=== PATIENT | female | born 1960 | race Two or more races ===

== ENCOUNTER 2016-04-24 19:06 | Inpatient (IN) | payer MEDICAID, OTHER ==
[~2016-04-24] VITALS: Ht 172.7 cm; Wt 164.2 kg
[2016-04-24 20:06] LABS: INR 2.38 (0.87-1.13)
[2016-04-24 20:07] LABS: ALANINE AMINOTRANSFERASE 77 U/L (12-78); ALBUMIN 1.8 g/dL (3.4-5.0); ASPARTATE AMINOTRANSFERASE 278 U/L (15-37); BILIRUBIN,DIRECT 6.4 mg/dL (0.0-0.2); BILIRUBIN,TOTAL 7.9 mg/dL (0.2-1.0); CARBON DIOXIDE 23 mmol/L (21-32); CHLORIDE 105 mmol/L (98-107); GFR 9 mL/min (>60); INDIRECT BILIRUBIN 1.5 mg/dL (0.0-1.1); POTASSIUM 4.9 mmol/L (3.5-5.1); SODIUM SERUM 139 mmol/L (136-145); TOTAL PROTEIN, SERUM 6.9 g/dL (6.4-8.2)
[2016-04-24 20:09] LABS: ANION GAP 16 (5-14); CALCIUM, SERUM 10.6 mg/dL (8.5-10.1); CREATININE 5.1 mg/dL (0.6-1.3); GLUCOSE 123 mg/dL (74-106); TROPONIN I 0.022 ng/mL (0.00-0.056); UREA NITROGEN, BLOOD 58 mg/dL (7-18)
[2016-04-24 20:13] LABS: DIFF TOTAL % 100 %; EOSINOPHILS # (AUTO) 0.7 /CMM (0.0-0.7); EOSINOPHILS % (AUTO) 7.1 % (0.0-6.0); HEMATOCRIT 35 % (33-45); LYMPHOCYTES # (AUTO) 1.3 /CMM (0.8-4.8); LYMPHOCYTES % (AUTO) 13.6 % (20.0-44.0); MEAN CORPUSCULAR HEMOGLOBIN 28 PG (26.0-33.0); MEAN CORPUSCULAR HGB CONC 31 g/dl (31.0-36.0); MEAN CORPUSCULAR VOLUME 89 fL (82-100); MONOCYTES # (AUTO) 0.6 /CMM (0.1-1.30); MONOCYTES % (AUTO) 6.3 % (2.0-12.0); NEUTROPHILS # (AUTO) 6.9 /CMM (1.8-8.9); PLATELET COUNT (AUTO) 111 /CMM (150-450); RED BLOOD CELL COUNT(AUTO) 3.94 MIL/uL (4.0-5.2); WHITE BLOOD COUNT (AUTO) 9.4 K/uL (4.3-11.0)
[2016-04-24 20:16] LABS: LACTIC ACID 3.2 mmol/L (0.4-2.0)
[2016-04-24] MEDS ORDERED: IV NS 0.9% 2,000 ML ONE (20:17)
[2016-04-24] MEDS ORDERED: IV SET PRIMARY 1 EA INFUS.SET MC ONE ×3 (20:17→21:00)
[2016-04-24 20:28] LABS: KETONES,URINE TRACE (NEGATIVE); LEUKOCYTE ESTERASE ,URINE 3+ (NEGATIVE)
[2016-04-24] MEDS ORDERED: IV NS 0.9% 1,000 ML BAG IV ONE (20:30)
[2016-04-24 20:32] LABS: ADD UA MICROSCOPIC YES
[2016-04-24 20:34] LABS: ADD URINE CULTURE YES; RBC,URINE TOO NUMEROUS TO COUN /HPF (0-2); WBC,URINE TOO NUMEROUS TO COUN /HPF (0-3)
[2016-04-24] MEDS ORDERED: CEFTRIAXONE 1GM BAG (ER ONLY) 50 ML IV ONE (20:44)
[2016-04-24 20:47] LABS: *LACTIC ACID REFLEX FLAG YES
[2016-04-24] MEDS ORDERED: CIPROFLOXACIN IV RTU 400 MG in PREMIX 1 EA IV SCH (21:00)
[2016-04-24] MEDS ORDERED: CEFEPIME 1 GM VIAL ONE (21:00)
[2016-04-24] MEDS ORDERED: CEFTRIAXONE 1 G in IV D5W 50 ML IV SCH (21:00)
[2016-04-24] MEDS ORDERED: CEFEPIME 1 GM in IV D5W 50 ML IV ONE (21:00)
[2016-04-24] MEDS ORDERED: CIPROFLOXACIN IV RTU 200 ML IV ONE (21:00)
[2016-04-24] MEDS ORDERED: IV SET PRIMARY PUMP SET 1 EA INFUS.SET MC ONE (21:01)
[2016-04-24] MEDS ORDERED: IV D5W 50 ML IV ONE (21:01)
[2016-04-24] MEDS ORDERED: ACETAMINOPHEN 325 MG TABLET PO PRN (22:00)
[2016-04-24] MEDS ORDERED: HYDROCODONE/APAP 5/325MG 1 EACH TABLET PO PRN (22:00)
[2016-04-24] MEDS ORDERED: MAGNESIUM HYDROXIDE 30 ML UDC PO PRN (22:00)
[2016-04-24] MEDS ORDERED: ONDANSETRON HCL/PF 4 MG/2 ML VIAL IVP PRN (22:00)
[2016-04-24] MEDS ORDERED: Z GUARD REMEDY 2 OZ OINT TP PRN (22:00)
[2016-04-24] MEDS ORDERED: MAG HYDROX/AL HYDROX/SIMETH 30 ML UDC PO PRN (22:00)
[2016-04-24] MEDS ORDERED: ZOLPIDEM TARTRATE 5 MG TABLET PO PRN (22:00)
[2016-04-25] VITALS (60 sets, daily range): BP systolic 75–121; BP diastolic 33–70
[2016-04-25] MEDS ORDERED: DEXTROSE 50%-WATER 50 ML DISP.SYRIN IV PRN (00:30)
[2016-04-25] MEDS ORDERED: MUPI1OIN BNOSTRILS (01:17)
[2016-04-25] MEDS ORDERED: FURO-145 PO (01:17)
[2016-04-25] MEDS ORDERED: ONDA4TAB5 PO (01:17)
[2016-04-25] MEDS ORDERED: DIPH50CA37 PO (01:17)
[2016-04-25] MEDS ORDERED: BENA10TA2 PO (01:17)
[2016-04-25] MEDS ORDERED: FAMO-131 PO (01:17)
[2016-04-25] MEDS ORDERED: OCULAR LUBRICANT (01:17)
[2016-04-25] MEDS ORDERED: APIX5TAB PO (01:17)
[2016-04-25] MEDS ORDERED: GABA100C PO (01:17)
[2016-04-25] MEDS ORDERED: OXYB5TAB29 PO (01:17)
[2016-04-25] MEDS ORDERED: NYST500P TOP (01:17)
[2016-04-25] MEDS ORDERED: ACID1CAP3 PO (01:18)
[2016-04-25] MEDS ORDERED: MELA1TAB10 PO (01:18)
[2016-04-25] MEDS ORDERED: POLY17PO4 PO (01:18)
[2016-04-25] MEDS ORDERED: HYDR2TAB35 PO (01:18)
[2016-04-25] MEDS ORDERED: TRAM50TA2 PO (01:18)
[2016-04-25] MEDS ORDERED: IBUP-1481 PO (01:18)
[2016-04-25] MEDS ORDERED: IBUP-1955 PO (01:18)
[2016-04-25] MEDS ORDERED: Medication Not On Formulary EA (Ondansetron Hcl (Zofran) 1 TAB) PO PRN (01:30)
[2016-04-25] MEDS ORDERED: POLYETHYLENE GLYCOL 3350 17 GM POWD.PACK PO PRN (01:30)
[2016-04-25] MEDS ORDERED: diphenhydrAMINE HCL 50 MG CAPSULE PO PRN (01:30)
[2016-04-25] MEDS ORDERED: HYDROMORPHONE HCL 2 MG TABLET PO PRN (01:30)
[2016-04-25] MEDS ORDERED: IV NS 0.9% 1,000 ML ONE (03:51)
[2016-04-25] MEDS ORDERED: IV SET PRIMARY PUMP SET 1 EA INFUS.SET MC ONE ×3 (03:51→09:08)
[2016-04-25] MEDS: IV NS 0.9% 1,000 ML IV PRN ×2 (04:14→15:03)
[2016-04-25] MEDS: BLOOD SUGAR DIAGNOSTIC 1 EACH STRIP IN SCH ×4 (05:50→21:26)
[2016-04-25] MEDS: INSULIN DETEMIR 100 UNIT/ML CARTRIDGE SQ SCH ×2 (05:58→07:30)
[2016-04-25] MEDS ORDERED: NOREPINEPHRINE 8 MG in IV D5W 500 ML IV PRN (06:00)
[2016-04-25] MEDS ORDERED: IV D5W 500 ML IV ONE (06:22)
[2016-04-25] MEDS ORDERED: NOREPINEPHRINE 4 MG/4 ML AMPUL IV ONE (06:22)
[2016-04-25] MEDS: NOREPINEPHRINE 8 MG in IV D5W 500 ML IV PRN ×2 (06:38→09:17)
[2016-04-25 07:59] LABS: CALCIUM, SERUM 10.1 mg/dL (8.5-10.1); CREATININE 5.1 mg/dL (0.6-1.3); PHOSPHORUS 4.6 mg/dL (2.5-4.9)
[2016-04-25 08:18] LABS: POTASSIUM 5.4 mmol/L (3.5-5.1)
[2016-04-25] MEDS ORDERED: OXYBUTYNIN CHLORIDE ER 5 MG TAB PO SCH (09:00)
[2016-04-25] MEDS: LANOLIN/MIN OIL/PETROLAT,WHT 3.5 GM TUBE EACHEYE SCH ×2 (09:00→17:43)
[2016-04-25] MEDS: FAMOTIDINE (20 MG) 20 MG TABLET PO SCH ×2 (09:00→17:44)
[2016-04-25] MEDS: ACIDOPHILUS/BULGARICUS 1 EACH TAB.CHEW PO SCH ×2 (09:00→17:44)
[2016-04-25] MEDS: GABAPENTIN 100 MG CAPSULE PO SCH (09:00)
[2016-04-25] MEDS: TRAMADOL HCL 50 MG TABLET PO SCH ×3 (09:00→17:44)
[2016-04-25 09:01] LABS: BASOPHILS % (AUTO) 0.1 % (0.0-2.0); DIFF TOTAL % 100 %; EOSINOPHILS # (AUTO) 0.8 /CMM (0.0-0.7); EOSINOPHILS % (AUTO) 8.6 % (0.0-6.0); HEMATOCRIT 34 % (33-45); HEMOGLOBIN 10.8 g/dL (11.5-14.8); LYMPHOCYTES # (AUTO) 0.6 /CMM (0.8-4.8); LYMPHOCYTES % (AUTO) 6.6 % (20.0-44.0); MEAN CORPUSCULAR HEMOGLOBIN 29 PG (26.0-33.0); MEAN CORPUSCULAR HGB CONC 32 g/dl (31.0-36.0); MEAN CORPUSCULAR VOLUME 90 fL (82-100); MONOCYTES # (AUTO) 0.9 /CMM (0.1-1.30); NEUTROPHILS % (AUTO) 74.7 % (43.0-81.0); PLATELET COUNT (AUTO) 87 /CMM (150-450); RED BLOOD CELL COUNT(AUTO) 3.77 MIL/uL (4.0-5.2)
[2016-04-25] MEDS ORDERED: SECONDARY IV SET 1 EA INFUS.SET MC ONE ×2 (09:08→13:52)
[2016-04-25] MEDS ORDERED: IV NS 0.9% 250 ML IV ONE (09:09)
[2016-04-25] MEDS: VANCOMYCIN 1.25 GM in IV D5W 500 ML IV SCH (09:17)
[2016-04-25] MEDS ORDERED: MUPIROCIN OINT 2% 22 GM TUBE TP SCH (09:30)
[2016-04-25] MEDS: APIXABAN 5 MG TABLET PO SCH ×2 (10:00→20:00)
[2016-04-25] MEDS ORDERED: MUPIROCIN OINT 2% 22 GM TUBE SCH (10:00)
[2016-04-25] MEDS ORDERED: FEE PK DOSING 1 MIN EA MC ONE (10:47)
[2016-04-25 11:25] LABS: LYMPHOCYTES % (MANUAL) 12 % (16-48); WHITE BLOOD COUNT (AUTO) 9.4 K/uL (4.3-11.0)
[2016-04-25 11:26] LABS: EOSINOPHILS % (MANUAL) 9 % (0-4)
[2016-04-25 11:27] LABS: ANISOCYTOSIS 2+; HYPOCHROMASIA 1+; PLATELET ESTIMATE DECREASED
[2016-04-25] MEDS ORDERED: SODIUM POLYSTYRENE SULFONATE 15 G/60 ML BOTTLE RC ONE (13:00)
[2016-04-25 13:38] LABS: CREATININE, URINE 67.5 MG/DL (30.0-125.0)
[2016-04-25] MEDS: ALBUMIN 25% 25 GM in PREMIX 1 EA IV SCH ×2 (13:55→18:00)
[2016-04-25] MEDS: NYSTATIN CREAM 15 GM TUBE TP SCH ×2 (14:00→17:44)
[2016-04-25] MEDS: INSULIN ASPART NOVOLOG 100 UNIT/ML CARTRIDGE SQ PRN (17:51)
[2016-04-25] MEDS: NOREPINEPHRINE 16 MG in IV D5W 500 ML IV PRN (18:01)
[2016-04-25 18:21] LABS: ABG HCO3 18.3 mmol/L; ABG PCO2 31.9 mmHg (35.0-45.0); ABG PH 7.376 (7.350-7.450); ABG PO2 93.1 mmHg (75.0-100.0); ABG TOTAL HEMOGLOBIN 11.1 G/dL (12.0-16.0); ALLEN TEST Pass; AaDO2 155.4 mmHg; O2Hb 94.5 % (94.0-97.0)
[2016-04-25] MEDS: CEFEPIME 1 GM in IV D5W 50 ML IV SCH (21:26)
[2016-04-25] MEDS ORDERED: Medication Not On Formulary EA (Melatonin/Pyridoxine (Melatonin 3 Mg Tablet) 1 EACH) PO SCH (22:00)
[2016-04-25] MEDS ORDERED: CEFTRIAXONE 1 G in IV D5W 50 ML IV SCH (22:00)
[2016-04-26] VITALS (76 sets, daily range): BP systolic 81–153; BP diastolic 32–76
[2016-04-26] MEDS: ALBUMIN 25% 25 GM in PREMIX 1 EA IV SCH ×2 (00:06→06:00)
[2016-04-26 04:44] LABS: BASOPHILS % (AUTO) 0.2 % (0.0-2.0); DIFF TOTAL % 100 %; EOSINOPHILS # (AUTO) 0.5 /CMM (0.0-0.7); EOSINOPHILS % (AUTO) 5.5 % (0.0-6.0); HEMATOCRIT 29 % (33-45); HEMOGLOBIN 9.5 g/dL (11.5-14.8); LYMPHOCYTES # (AUTO) 3.3 /CMM (0.8-4.8); LYMPHOCYTES % (AUTO) 34.6 % (20.0-44.0); MEAN CORPUSCULAR HEMOGLOBIN 29 PG (26.0-33.0); MEAN CORPUSCULAR HGB CONC 33 g/dl (31.0-36.0); MEAN CORPUSCULAR VOLUME 89 fL (82-100); MONOCYTES # (AUTO) 0.7 /CMM (0.1-1.30); MONOCYTES % (AUTO) 7.6 % (2.0-12.0); NEUTROPHILS # (AUTO) 4.9 /CMM (1.8-8.9); NEUTROPHILS % (AUTO) 52.1 % (43.0-81.0); PLATELET COUNT (AUTO) 79 /CMM (150-450); RED BLOOD CELL COUNT(AUTO) 3.27 MIL/uL (4.0-5.2); WHITE BLOOD COUNT (AUTO) 9.4 K/uL (4.3-11.0)
[2016-04-26 05:14] LABS: ALBUMIN 2.6 g/dL (3.4-5.0); BILIRUBIN,DIRECT 7.1 mg/dL (0.0-0.2); CALCIUM, SERUM 9.9 mg/dL (8.5-10.1); CREATININE 5.7 mg/dL (0.6-1.3); INDIRECT BILIRUBIN 1.9 mg/dL (0.0-1.1); PHOSPHORUS 4.2 mg/dL (2.5-4.9); POTASSIUM 4.6 mmol/L (3.5-5.1); TOTAL PROTEIN, SERUM 6.5 g/dL (6.4-8.2)
[2016-04-26 05:43] LABS: ANISOCYTOSIS 2+; BASOPHILS % (MANUAL) 0 % (0.0-2.0); EOSINOPHILS % (MANUAL) 13 % (0-4); LYMPHOCYTES % (MANUAL) 15 % (16-48); PLATELET ESTIMATE DECREASED
[2016-04-26 05:44] LABS: POLYCHROMASIA 1+
[2016-04-26] MEDS: INSULIN DETEMIR 100 UNIT/ML CARTRIDGE SQ SCH (07:30)
[2016-04-26] MEDS: BLOOD SUGAR DIAGNOSTIC 1 EACH STRIP IN SCH ×4 (07:43→21:55)
[2016-04-26] MEDS: APIXABAN 5 MG TABLET PO SCH ×2 (09:00→17:11)
[2016-04-26] MEDS: FAMOTIDINE (20 MG) 20 MG TABLET PO SCH ×2 (09:00→17:10)
[2016-04-26] MEDS: ACIDOPHILUS/BULGARICUS 1 EACH TAB.CHEW PO SCH ×2 (09:00→17:10)
[2016-04-26] MEDS: TRAMADOL HCL 50 MG TABLET PO SCH ×3 (09:00→17:10)
[2016-04-26] MEDS: GABAPENTIN 100 MG CAPSULE PO SCH (09:00)
[2016-04-26] MEDS: LANOLIN/MIN OIL/PETROLAT,WHT 3.5 GM TUBE EACHEYE SCH ×2 (09:01→17:12)
[2016-04-26] MEDS: NYSTATIN CREAM 15 GM TUBE TP SCH ×2 (09:01→17:12)
[2016-04-26] MEDS: IV NS 0.9% 1,000 ML IV PRN ×2 (09:02→21:57)
[2016-04-26 09:29] LABS: ABG BASE EXCESS -6.8 mmol/L; ABG HCO3 18.3 mmol/L; ABG PH 7.336 (7.350-7.450); ABG PO2 88.2 mmHg (75.0-100.0); ABG TOTAL HEMOGLOBIN 10.5 G/dL (12.0-16.0); ALLEN TEST Pass; AaDO2 156.8 mmHg; O2Hb 93.6 % (94.0-97.0)
[2016-04-26] MEDS ORDERED: GLYTROL 1,000 ML BAG GT PRN (09:30)
[2016-04-26] MEDS ORDERED: LACTULOSE 10 G/15 ML UDC (PYXIS) PO PRN (12:00)
[2016-04-26] MEDS: LACTULOSE 10 G/15 ML UDC (PYXIS) PO SCH ×2 (12:45→17:10)
[2016-04-26] MEDS: NOREPINEPHRINE 16 MG in IV D5W 500 ML IV PRN (15:30)
[2016-04-26] MEDS: PROSOURCE / PROSTAT (PYXIS) 30 ML UDC GT SCH (17:00)
[2016-04-26] MEDS: CEFEPIME 1 GM in IV D5W 50 ML IV SCH (20:00)
[2016-04-26] MEDS ORDERED: SECONDARY IV SET 1 EA INFUS.SET MC ONE (20:00)
[2016-04-27] VITALS (110 sets, daily range): BP systolic 70–133; BP diastolic 30–74
[2016-04-27] MEDS ORDERED: IV NS 0.9% 1,000 ML BAG IV ONE
[2016-04-27] MEDS: LACTULOSE 10 G/15 ML UDC (PYXIS) PO SCH ×4 (00:01→17:10)
[2016-04-27 08:06] LABS: CALCIUM, SERUM 9.6 mg/dL (8.5-10.1); CREATININE 6.5 mg/dL (0.6-1.3); POTASSIUM 4.2 mmol/L (3.5-5.1)
[2016-04-27] MEDS: FAMOTIDINE (20 MG) 20 MG TABLET PO SCH ×2 (08:20→17:11)
[2016-04-27] MEDS: TRAMADOL HCL 50 MG TABLET PO SCH ×3 (08:20→17:11)
[2016-04-27] MEDS: GABAPENTIN 100 MG CAPSULE PO SCH (08:20)
[2016-04-27] MEDS: APIXABAN 5 MG TABLET PO SCH ×2 (08:20→17:00)
[2016-04-27] MEDS: BLOOD SUGAR DIAGNOSTIC 1 EACH STRIP IN SCH ×3 (08:20→17:11)
[2016-04-27] MEDS: ACIDOPHILUS/BULGARICUS 1 EACH TAB.CHEW PO SCH ×2 (08:20→17:11)
[2016-04-27 08:21] LABS: DIFF TOTAL % 100 %; EOSINOPHILS # (AUTO) 0.7 /CMM (0.0-0.7); EOSINOPHILS % (AUTO) 6.7 % (0.0-6.0); HEMATOCRIT 29 % (33-45); HEMOGLOBIN 9.6 g/dL (11.5-14.8); LYMPHOCYTES # (AUTO) 1.2 /CMM (0.8-4.8); LYMPHOCYTES % (AUTO) 11.1 % (20.0-44.0); MEAN CORPUSCULAR HEMOGLOBIN 29 PG (26.0-33.0); MEAN CORPUSCULAR HGB CONC 33 g/dl (31.0-36.0); MEAN CORPUSCULAR VOLUME 90 fL (82-100); MONOCYTES % (AUTO) 9.9 % (2.0-12.0); NEUTROPHILS # (AUTO) 7.6 /CMM (1.8-8.9); NEUTROPHILS % (AUTO) 72.3 % (43.0-81.0); PLATELET COUNT (AUTO) 85 /CMM (150-450); RED BLOOD CELL COUNT(AUTO) 3.28 MIL/uL (4.0-5.2); WHITE BLOOD COUNT (AUTO) 10.5 K/uL (4.3-11.0)
[2016-04-27] MEDS: INSULIN DETEMIR 100 UNIT/ML CARTRIDGE SQ SCH (08:21)
[2016-04-27] MEDS: NYSTATIN CREAM 15 GM TUBE TP SCH ×2 (08:23→17:06)
[2016-04-27] MEDS: LANOLIN/MIN OIL/PETROLAT,WHT 3.5 GM TUBE EACHEYE SCH ×2 (08:23→17:06)
[2016-04-27] MEDS: PROSOURCE / PROSTAT (PYXIS) 30 ML UDC GT SCH ×2 (09:00→17:10)
[2016-04-27 09:25] LABS: BAND % (MANUAL) 1 % (0.0-5.0); EOSINOPHILS % (MANUAL) 3 % (0-4); LYMPHOCYTES % (MANUAL) 22 % (16-48)
[2016-04-27 09:26] LABS: ANISOCYTOSIS 1+; PLATELET ESTIMATE DECREASED
[2016-04-27] MEDS: VANCOMYCIN 1.25 GM in IV D5W 500 ML IV SCH (09:31)
[2016-04-27 10:11] LABS: INR 2.52 (0.87-1.13); PROTHROMBIN TIME 27.5 SECS (9.5-12.7)
[2016-04-27] MEDS ORDERED: LEVOFLOXACIN 500 MG /D5W 100ML 500 MG in PREMIX 1 EA IV SCH (10:30)
[2016-04-27] MEDS: NOREPINEPHRINE 16 MG in IV D5W 500 ML IV PRN (10:33)
[2016-04-27] MEDS: INSULIN ASPART NOVOLOG 100 UNIT/ML CARTRIDGE SQ PRN ×2 (12:40→17:14)
[2016-04-27] MEDS: CEFTRIAXONE 1 G in IV D5W 50 ML IV SCH (13:54)
[2016-04-27] MEDS: IV NS 0.9% 1,000 ML IV PRN (13:56)
[2016-04-27] MEDS ORDERED: BLOOD IV SET 1 EA INFUS.SET MC ONE (16:36)
[2016-04-27] MEDS ORDERED: SECONDARY IV SET 1 EA INFUS.SET MC ONE (17:08)
[2016-04-27] MEDS ORDERED: METOCLOPRAMIDE HCL 10 MG/2 ML VIAL IV SCH (18:30)
[2016-04-27] MEDS ORDERED: DEXTROSE 50%-WATER 50 ML DISP.SYRIN IV PRN (19:30)
[2016-04-27] MEDS: METOCLOPRAMIDE HCL 10 MG/2 ML VIAL IV SCH (20:10)
[2016-04-28] VITALS (113 sets, daily range): BP systolic 83–134; BP diastolic 25–72
[2016-04-28] MEDS ORDERED: BLOOD SUGAR DIAGNOSTIC 1 EACH STRIP IN SCH
[2016-04-28] MEDS: LACTULOSE 10 G/15 ML UDC (PYXIS) PO SCH ×4 (00:07→18:01)
[2016-04-28] MEDS: BLOOD SUGAR DIAGNOSTIC 1 EACH STRIP IN SCH ×4 (00:07→18:02)
[2016-04-28] MEDS: NOREPINEPHRINE 16 MG in IV D5W 500 ML IV PRN ×2 (00:33→18:31)
[2016-04-28] MEDS: IV NS 0.9% 1,000 ML IV PRN ×2 (03:38→18:04)
[2016-04-28 04:49] LABS: DIFF TOTAL % 100 %; EOSINOPHILS # (AUTO) 0.7 /CMM (0.0-0.7); EOSINOPHILS % (AUTO) 6.4 % (0.0-6.0); HEMATOCRIT 29 % (33-45); HEMOGLOBIN 9.5 g/dL (11.5-14.8); LYMPHOCYTES # (AUTO) 0.9 /CMM (0.8-4.8); LYMPHOCYTES % (AUTO) 8.5 % (20.0-44.0); MEAN CORPUSCULAR HEMOGLOBIN 29 PG (26.0-33.0); MEAN CORPUSCULAR HGB CONC 33 g/dl (31.0-36.0); MEAN CORPUSCULAR VOLUME 88 fL (82-100); MONOCYTES # (AUTO) 1.1 /CMM (0.1-1.30); NEUTROPHILS # (AUTO) 8.4 /CMM (1.8-8.9); NEUTROPHILS % (AUTO) 75.1 % (43.0-81.0); PLATELET COUNT (AUTO) 86 /CMM (150-450); RED BLOOD CELL COUNT(AUTO) 3.26 MIL/uL (4.0-5.2); WHITE BLOOD COUNT (AUTO) 11.1 K/uL (4.3-11.0)
[2016-04-28] MEDS: METOCLOPRAMIDE HCL 10 MG/2 ML VIAL IV SCH ×3 (05:02→22:53)
[2016-04-28 05:06] LABS: CALCIUM, SERUM 9.3 mg/dL (8.5-10.1); CREATININE 7.1 mg/dL (0.6-1.3)
[2016-04-28 06:06] LABS: BAND % (MANUAL) 2 % (0.0-5.0); BASOPHILS % (MANUAL) 0 % (0.0-2.0); EOSINOPHILS % (MANUAL) 6 % (0-4); LYMPHOCYTES % (MANUAL) 16 % (16-48); METAMYELOCYTES % 1 % (0-0); PLATELET ESTIMATE DECREASED
[2016-04-28 06:07] LABS: ANISOCYTOSIS 2+; OVALOCYTES 1+; TEAR DROP CELLS 1+
[2016-04-28] MEDS ORDERED: BLOOD IV SET 1 EA INFUS.SET MC ONE (08:11)
[2016-04-28] MEDS: ACIDOPHILUS/BULGARICUS 1 EACH TAB.CHEW PO SCH ×2 (08:16→18:01)
[2016-04-28] MEDS: PROSOURCE / PROSTAT (PYXIS) 30 ML UDC GT SCH ×2 (08:16→18:01)
[2016-04-28] MEDS: GABAPENTIN 100 MG CAPSULE PO SCH (08:16)
[2016-04-28] MEDS: FAMOTIDINE (20 MG) 20 MG TABLET PO SCH ×2 (08:16→18:02)
[2016-04-28] MEDS: TRAMADOL HCL 50 MG TABLET PO SCH ×3 (08:17→18:08)
[2016-04-28] MEDS: APIXABAN 5 MG TABLET PO SCH ×2 (08:17→18:02)
[2016-04-28] MEDS: INSULIN DETEMIR 100 UNIT/ML CARTRIDGE SQ SCH (08:17)
[2016-04-28] MEDS: LANOLIN/MIN OIL/PETROLAT,WHT 3.5 GM TUBE EACHEYE SCH ×2 (08:18→17:57)
[2016-04-28] MEDS: NYSTATIN CREAM 15 GM TUBE TP SCH ×2 (08:18→17:57)
[2016-04-28 08:34] LABS: INR 2.18 (0.87-1.13); PROTHROMBIN TIME 23.7 SECS (9.5-12.7)
[2016-04-28] MEDS: CEFTRIAXONE 1 G in IV D5W 50 ML IV SCH (12:06)
[2016-04-29] VITALS (105 sets, daily range): BP systolic 66–135; BP diastolic 33–96
[2016-04-29] MEDS: BLOOD SUGAR DIAGNOSTIC 1 EACH STRIP IN SCH ×5 (00:31→23:41)
[2016-04-29] MEDS: LACTULOSE 10 G/15 ML UDC (PYXIS) PO SCH ×5 (00:35→23:29)
[2016-04-29] MEDS: METOCLOPRAMIDE HCL 10 MG/2 ML VIAL IV SCH ×4 (05:41→23:41)
[2016-04-29] MEDS: NOREPINEPHRINE 16 MG in IV D5W 500 ML IV PRN ×2 (06:26→12:13)
[2016-04-29] MEDS: IV NS 0.9% 1,000 ML IV PRN ×2 (07:36→17:41)
[2016-04-29] MEDS ORDERED: IV SET PRIMARY PUMP SET 1 EA INFUS.SET MC ONE (08:19)
[2016-04-29] MEDS ORDERED: SECONDARY IV SET 1 EA INFUS.SET MC ONE (08:20)
[2016-04-29] MEDS: ALBUMIN 25% 25 GM in PREMIX 1 EA IV PRN (08:31)
[2016-04-29 08:57] LABS: DIFF TOTAL % 100 %; EOSINOPHILS # (AUTO) 0.4 /CMM (0.0-0.7); HEMATOCRIT 28 % (33-45); LYMPHOCYTES # (AUTO) 1.7 /CMM (0.8-4.8); MEAN CORPUSCULAR HEMOGLOBIN 30 PG (26.0-33.0); MEAN CORPUSCULAR HGB CONC 33 g/dl (31.0-36.0); MEAN CORPUSCULAR VOLUME 90 fL (82-100); MONOCYTES # (AUTO) 0.2 /CMM (0.1-1.30); MONOCYTES % (AUTO) 3.1 % (2.0-12.0); NEUTROPHILS # (AUTO) 4.8 /CMM (1.8-8.9); NEUTROPHILS % (AUTO) 67.9 % (43.0-81.0); PLATELET COUNT (AUTO) 63 /CMM (150-450); RED BLOOD CELL COUNT(AUTO) 3.07 MIL/uL (4.0-5.2)
[2016-04-29] MEDS: FAMOTIDINE (20 MG) 20 MG TABLET PO SCH ×2 (09:07→16:21)
[2016-04-29] MEDS: ACIDOPHILUS/BULGARICUS 1 EACH TAB.CHEW PO SCH ×2 (09:07→16:21)
[2016-04-29] MEDS: TRAMADOL HCL 50 MG TABLET PO SCH ×3 (09:07→16:22)
[2016-04-29] MEDS: GABAPENTIN 100 MG CAPSULE PO SCH (09:07)
[2016-04-29] MEDS: PROSOURCE / PROSTAT (PYXIS) 30 ML UDC GT SCH ×2 (09:07→16:21)
[2016-04-29] MEDS: APIXABAN 5 MG TABLET PO SCH ×2 (09:07→16:21)
[2016-04-29] MEDS: NYSTATIN CREAM 15 GM TUBE TP SCH ×2 (09:08→16:22)
[2016-04-29] MEDS: LANOLIN/MIN OIL/PETROLAT,WHT 3.5 GM TUBE EACHEYE SCH ×2 (09:08→16:22)
[2016-04-29] MEDS: INSULIN DETEMIR 100 UNIT/ML CARTRIDGE SQ SCH (09:13)
[2016-04-29 09:16] LABS: CALCIUM, SERUM 8.6 mg/dL (8.5-10.1); CREATININE 5.5 mg/dL (0.6-1.3); POTASSIUM 3.4 mmol/L (3.5-5.1)
[2016-04-29 10:02] LABS: BAND % (MANUAL) 5 % (0.0-5.0); EOSINOPHILS % (MANUAL) 6 % (0-4); LYMPHOCYTES % (MANUAL) 19 % (16-48); PLATELET ESTIMATE DECREASED
[2016-04-29 10:03] LABS: HYPOCHROMASIA 1+; MICROCYTOSIS 1+
[2016-04-29] MEDS: CEFTRIAXONE 1 G in IV D5W 50 ML IV SCH (12:12)
[2016-04-30] VITALS (112 sets, daily range): BP systolic 76–135; BP diastolic 24–77
[2016-04-30] MEDS: NOREPINEPHRINE 16 MG in IV D5W 500 ML IV PRN ×2 (00:53→19:03)
[2016-04-30] MEDS: LACTULOSE 10 G/15 ML UDC (PYXIS) PO SCH ×5 (06:00→23:56)
[2016-04-30] MEDS: IV NS 0.9% 1,000 ML IV PRN ×2 (06:01→20:35)
[2016-04-30] MEDS: BLOOD SUGAR DIAGNOSTIC 1 EACH STRIP IN SCH ×4 (06:02→23:57)
[2016-04-30] MEDS: METOCLOPRAMIDE HCL 10 MG/2 ML VIAL IV SCH ×4 (06:02→23:57)
[2016-04-30] MEDS: INSULIN DETEMIR 100 UNIT/ML CARTRIDGE SQ SCH (07:30)
[2016-04-30] MEDS: ACIDOPHILUS/BULGARICUS 1 EACH TAB.CHEW PO SCH ×2 (09:00→17:09)
[2016-04-30] MEDS: TRAMADOL HCL 50 MG TABLET PO SCH ×3 (09:00→17:10)
[2016-04-30] MEDS: PROSOURCE / PROSTAT (PYXIS) 30 ML UDC GT SCH ×2 (09:00→17:10)
[2016-04-30] MEDS: FAMOTIDINE (20 MG) 20 MG TABLET PO SCH ×2 (09:00→17:10)
[2016-04-30] MEDS: GABAPENTIN 100 MG CAPSULE PO SCH (09:01)
[2016-04-30] MEDS: LANOLIN/MIN OIL/PETROLAT,WHT 3.5 GM TUBE EACHEYE SCH ×2 (09:04→17:11)
[2016-04-30] MEDS: APIXABAN 5 MG TABLET PO SCH ×2 (09:04→17:09)
[2016-04-30] MEDS: NYSTATIN CREAM 15 GM TUBE TP SCH ×2 (09:04→17:09)
[2016-04-30] MEDS: CEFTRIAXONE 1 G in IV D5W 50 ML IV SCH (13:04)
[2016-04-30 16:19] LABS: EOSINOPHILS % (AUTO) 10.2 % (0.0-6.0); HEMATOCRIT 27 % (33-45); HEMOGLOBIN 8.6 g/dL (11.5-14.8); LYMPHOCYTES # (AUTO) 1.2 /CMM (0.8-4.8); LYMPHOCYTES % (AUTO) 12.2 % (20.0-44.0); MEAN CORPUSCULAR HEMOGLOBIN 28 PG (26.0-33.0); MEAN CORPUSCULAR HGB CONC 32 g/dl (31.0-36.0); MEAN CORPUSCULAR VOLUME 88 fL (82-100); MONOCYTES # (AUTO) 0.9 /CMM (0.1-1.30); MONOCYTES % (AUTO) 9.1 % (2.0-12.0); NEUTROPHILS # (AUTO) 6.6 /CMM (1.8-8.9); NEUTROPHILS % (AUTO) 68.5 % (43.0-81.0); PLATELET COUNT (AUTO) 63 /CMM (150-450); RED BLOOD CELL COUNT(AUTO) 3.02 MIL/uL (4.0-5.2); WHITE BLOOD COUNT (AUTO) 9.6 K/uL (4.3-11.0)
[2016-04-30 16:20] LABS: ALBUMIN 1.9 g/dL (3.4-5.0); BILIRUBIN,DIRECT 8.4 mg/dL (0.0-0.2); BILIRUBIN,TOTAL 11.1 mg/dL (0.2-1.0); CALCIUM, SERUM 7.9 mg/dL (8.5-10.1); DIFF TOTAL % 100 %; INDIRECT BILIRUBIN 2.7 mg/dL (0.0-1.1); PHOSPHORUS 3.3 mg/dL (2.5-4.9); TOTAL PROTEIN, SERUM 5.4 g/dL (6.4-8.2)
[2016-04-30 16:26] LABS: ANISOCYTOSIS 1+; BAND % (MANUAL) 2 % (0.0-5.0); EOSINOPHILS % (MANUAL) 10 % (0-4); LYMPHOCYTES % (MANUAL) 18 % (16-48); MICROCYTOSIS 1+; PLATELET ESTIMATE DECREASED; POLYCHROMASIA 1+
[2016-04-30 16:27] LABS: POIKILOCYTOSIS RARE; SCHISTOCYTES RARE
[2016-04-30 16:28] LABS: OVALOCYTES RARE
[2016-05-01] VITALS (126 sets, daily range): BP systolic 49–157; BP diastolic 22–89
[2016-05-01 04:58] LABS: BASOPHILS % (AUTO) 0.1 % (0.0-2.0); DIFF TOTAL % 100 %; HEMATOCRIT 29 % (33-45); HEMOGLOBIN 9.4 g/dL (11.5-14.8); LYMPHOCYTES # (AUTO) 2.4 /CMM (0.8-4.8); LYMPHOCYTES % (AUTO) 21.7 % (20.0-44.0); MEAN CORPUSCULAR HEMOGLOBIN 29 PG (26.0-33.0); MEAN CORPUSCULAR HGB CONC 32 g/dl (31.0-36.0); MEAN CORPUSCULAR VOLUME 90 fL (82-100); MONOCYTES # (AUTO) 0.8 /CMM (0.1-1.30); MONOCYTES % (AUTO) 6.8 % (2.0-12.0); NEUTROPHILS % (AUTO) 62.4 % (43.0-81.0); PLATELET COUNT (AUTO) 76 /CMM (150-450); RED BLOOD CELL COUNT(AUTO) 3.22 MIL/uL (4.0-5.2); WHITE BLOOD COUNT (AUTO) 11.3 K/uL (4.3-11.0)
[2016-05-01 05:13] LABS: CALCIUM, SERUM 8.7 mg/dL (8.5-10.1); CREATININE 7.2 mg/dL (0.6-1.3); PHOSPHORUS 3.7 mg/dL (2.5-4.9); POTASSIUM 3.2 mmol/L (3.5-5.1)
[2016-05-01] MEDS: METOCLOPRAMIDE HCL 10 MG/2 ML VIAL IV SCH ×4 (05:32→23:33)
[2016-05-01] MEDS: BLOOD SUGAR DIAGNOSTIC 1 EACH STRIP IN SCH ×4 (05:36→23:33)
[2016-05-01] MEDS: LACTULOSE 10 G/15 ML UDC (PYXIS) PO SCH ×4 (05:53→23:30)
[2016-05-01 06:09] LABS: BAND % (MANUAL) 2 % (0.0-5.0); BASOPHILS % (MANUAL) 0 % (0.0-2.0); EOSINOPHILS % (MANUAL) 11 % (0-4); LYMPHOCYTES % (MANUAL) 17 % (16-48); PLATELET ESTIMATE DECREASED
[2016-05-01 06:10] LABS: ANISOCYTOSIS 1+; MICROCYTOSIS 1+
[2016-05-01] MEDS: INSULIN DETEMIR 100 UNIT/ML CARTRIDGE SQ SCH (07:30)
[2016-05-01] MEDS: TRAMADOL HCL 50 MG TABLET PO SCH ×3 (09:00→16:33)
[2016-05-01] MEDS: FAMOTIDINE (20 MG) 20 MG TABLET PO SCH ×2 (09:00→16:33)
[2016-05-01] MEDS: APIXABAN 5 MG TABLET PO SCH ×2 (09:00→16:32)
[2016-05-01] MEDS: ACIDOPHILUS/BULGARICUS 1 EACH TAB.CHEW PO SCH ×2 (09:00→16:33)
[2016-05-01] MEDS: PROSOURCE / PROSTAT (PYXIS) 30 ML UDC GT SCH ×2 (09:00→16:32)
[2016-05-01] MEDS: GABAPENTIN 100 MG CAPSULE PO SCH (09:00)
[2016-05-01] MEDS: NYSTATIN CREAM 15 GM TUBE TP SCH ×2 (09:48→16:32)
[2016-05-01] MEDS: LANOLIN/MIN OIL/PETROLAT,WHT 3.5 GM TUBE EACHEYE SCH ×2 (09:48→16:32)
[2016-05-01] MEDS ORDERED: SECONDARY IV SET 1 EA INFUS.SET MC ONE ×2 (09:59→12:16)
[2016-05-01] MEDS: ALBUMIN 25% 25 GM in PREMIX 1 EA IV PRN (10:02)
[2016-05-01] MEDS: NOREPINEPHRINE 16 MG in IV D5W 500 ML IV PRN ×2 (10:51→22:55)
[2016-05-01] MEDS: IV D5/0.45 NACL 1,000 ML IV PRN (10:52)
[2016-05-01] MEDS: LEVOFLOXACIN 500 MG /D5W 100ML 500 MG in PREMIX 1 EA IV SCH (12:13)
[2016-05-01] MEDS: MORPHINE SULFATE INJ 2 MG/ML DISP.SYRIN IV PRN (16:28)
[2016-05-01] MEDS: LORAZEPAM INJ 2 MG/ML VIAL IV PRN (17:19)
[2016-05-02] VITALS (71 sets, daily range): BP systolic 72–145; BP diastolic 42–74
[2016-05-02 02:15] LABS: HEPATITIS C VIRUS AB 0.2 s/co ratio (0.0-0.9)
[2016-05-02 04:55] LABS: BASOPHILS % (AUTO) 0.2 % (0.0-2.0); DIFF TOTAL % 100 %; EOSINOPHILS # (AUTO) 1.1 /CMM (0.0-0.7); EOSINOPHILS % (AUTO) 8.9 % (0.0-6.0); HEMATOCRIT 28 % (33-45); HEMOGLOBIN 9.2 g/dL (11.5-14.8); LYMPHOCYTES # (AUTO) 3.5 /CMM (0.8-4.8); LYMPHOCYTES % (AUTO) 27.7 % (20.0-44.0); MEAN CORPUSCULAR HEMOGLOBIN 30 PG (26.0-33.0); MEAN CORPUSCULAR HGB CONC 33 g/dl (31.0-36.0); MEAN CORPUSCULAR VOLUME 91 fL (82-100); MONOCYTES # (AUTO) 0.7 /CMM (0.1-1.30); MONOCYTES % (AUTO) 5.8 % (2.0-12.0); NEUTROPHILS # (AUTO) 7.3 /CMM (1.8-8.9); NEUTROPHILS % (AUTO) 57.4 % (43.0-81.0); WHITE BLOOD COUNT (AUTO) 12.7 K/uL (4.3-11.0)
[2016-05-02 05:05] LABS: PLATELET COUNT (AUTO) 50 /CMM (150-450)
[2016-05-02] MEDS: LACTULOSE 10 G/15 ML UDC (PYXIS) PO SCH (05:20)
[2016-05-02 05:22] LABS: CALCIUM, SERUM 8.6 mg/dL (8.5-10.1); CREATININE 6.2 mg/dL (0.6-1.3); PHOSPHORUS 3.3 mg/dL (2.5-4.9); POTASSIUM 3.3 mmol/L (3.5-5.1)
[2016-05-02] MEDS: BLOOD SUGAR DIAGNOSTIC 1 EACH STRIP IN SCH ×3 (05:55→17:15)
[2016-05-02] MEDS: METOCLOPRAMIDE HCL 10 MG/2 ML VIAL IV SCH ×3 (05:56→17:31)
[2016-05-02] MEDS: INSULIN REGULAR, HUMAN 100 UNIT/ML 3 ML VIAL SQ PRN (05:58)
[2016-05-02 05:59] LABS: ANISOCYTOSIS 3+; BAND % (MANUAL) 13 % (0.0-5.0); BASOPHILS % (MANUAL) 0 % (0.0-2.0); EOSINOPHILS % (MANUAL) 6 % (0-4); LYMPHOCYTES % (MANUAL) 15 % (16-48); METAMYELOCYTES % 1 % (0-0); PLATELET ESTIMATE DECREASED
[2016-05-02 06:00] LABS: POLYCHROMASIA 1+; SCHISTOCYTES 1+; TEAR DROP CELLS 1+
[2016-05-02] MEDS: FAMOTIDINE (20 MG) 20 MG TABLET PO SCH ×2 (08:30→17:12)
[2016-05-02] MEDS: INSULIN DETEMIR 100 UNIT/ML CARTRIDGE SQ SCH (08:30)
[2016-05-02] MEDS: PROSOURCE / PROSTAT (PYXIS) 30 ML UDC GT SCH ×2 (08:30→17:12)
[2016-05-02] MEDS: APIXABAN 5 MG TABLET PO SCH ×2 (08:30→17:00)
[2016-05-02] MEDS: ACIDOPHILUS/BULGARICUS 1 EACH TAB.CHEW PO SCH ×2 (08:31→17:12)
[2016-05-02] MEDS: GABAPENTIN 100 MG CAPSULE PO SCH (08:31)
[2016-05-02] MEDS: TRAMADOL HCL 50 MG TABLET PO SCH ×3 (08:31→17:12)
[2016-05-02] MEDS: LANOLIN/MIN OIL/PETROLAT,WHT 3.5 GM TUBE EACHEYE SCH ×2 (08:31→17:11)
[2016-05-02] MEDS: IV D5/0.45 NACL 1,000 ML IV PRN (08:32)
[2016-05-02] MEDS: NYSTATIN CREAM 15 GM TUBE TP SCH ×2 (08:32→17:15)
[2016-05-02] MEDS: NOREPINEPHRINE 16 MG in IV D5W 500 ML IV PRN ×2 (10:31→17:14)
[2016-05-02] MEDS: ALBUMIN 25% 25 GM in PREMIX 1 EA IV PRN (10:34)
[2016-05-02] MEDS ORDERED: TPN/PPN PER PHARMACY IV PRN (13:00)
[2016-05-02] MEDS ORDERED: FEE TPN 1 MIN EA MC ONE (15:41)
[2016-05-02] MEDS ORDERED: DEXTROSE 50%-WATER 50 ML DISP.SYRIN IV PRN (16:00)
[2016-05-02] MEDS ORDERED: BLOOD SUGAR DIAGNOSTIC 1 EACH STRIP IN SCH (18:00)
[2016-05-02] MEDS ORDERED: TPN BAG #1 IV PRN ×7 (18:00)
[2016-05-02] MEDS ORDERED: FILTER SET SAVER IV SET 1 EA INFUS.SET MC ONE (18:34)
[2016-05-03] VITALS (80 sets, daily range): BP systolic 86–120; BP diastolic 23–96
[2016-05-03] MEDS: BLOOD SUGAR DIAGNOSTIC 1 EACH STRIP IN SCH ×5 (00:03→23:23)
[2016-05-03] MEDS: METOCLOPRAMIDE HCL 10 MG/2 ML VIAL IV SCH ×5 (00:09→23:30)
[2016-05-03] MEDS: NOREPINEPHRINE 16 MG in IV D5W 500 ML IV PRN ×3 (02:54→18:01)
[2016-05-03 04:15] LABS: BASOPHILS # (AUTO) 0.1 /CMM (0.0-0.2); BASOPHILS % (AUTO) 0.4 % (0.0-2.0); DIFF TOTAL % 100 %; EOSINOPHILS # (AUTO) 1.3 /CMM (0.0-0.7); HEMATOCRIT 27 % (33-45); HEMOGLOBIN 8.7 g/dL (11.5-14.8); LYMPHOCYTES # (AUTO) 2.8 /CMM (0.8-4.8); LYMPHOCYTES % (AUTO) 21.1 % (20.0-44.0); MEAN CORPUSCULAR HEMOGLOBIN 29 PG (26.0-33.0); MEAN CORPUSCULAR HGB CONC 32 g/dl (31.0-36.0); MEAN CORPUSCULAR VOLUME 91 fL (82-100); MONOCYTES # (AUTO) 0.9 /CMM (0.1-1.30); MONOCYTES % (AUTO) 7.1 % (2.0-12.0); NEUTROPHILS # (AUTO) 8.1 /CMM (1.8-8.9); NEUTROPHILS % (AUTO) 61.4 % (43.0-81.0); WHITE BLOOD COUNT (AUTO) 13.1 K/uL (4.3-11.0)
[2016-05-03 04:25] LABS: CALCIUM, SERUM 8.7 mg/dL (8.5-10.1); CREATININE 5.4 mg/dL (0.6-1.3); PHOSPHORUS 2.2 mg/dL (2.5-4.9); POTASSIUM 3.1 mmol/L (3.5-5.1)
[2016-05-03 04:27] LABS: PLATELET COUNT (AUTO) 44 /CMM (150-450)
[2016-05-03 05:37] LABS: BAND % (MANUAL) 3 % (0.0-5.0); BASOPHILS % (MANUAL) 0 % (0.0-2.0); EOSINOPHILS % (MANUAL) 0 % (0-4); LYMPHOCYTES % (MANUAL) 12 % (16-48); METAMYELOCYTES % 1 % (0-0)
[2016-05-03 05:38] LABS: ANISOCYTOSIS 2+; PLATELET ESTIMATE DECREASED
[2016-05-03] MEDS: INSULIN REGULAR, HUMAN 100 UNIT/ML 3 ML VIAL SQ PRN ×4 (06:01→23:25)
[2016-05-03] MEDS: INSULIN DETEMIR 100 UNIT/ML CARTRIDGE SQ SCH (07:55)
[2016-05-03] MEDS ORDERED: TPN BAG #2 IV PRN ×5 (08:00)
[2016-05-03] MEDS: TRAMADOL HCL 50 MG TABLET PO SCH ×3 (09:00→17:00)
[2016-05-03] MEDS: GABAPENTIN 100 MG CAPSULE PO SCH (09:00)
[2016-05-03] MEDS: ACIDOPHILUS/BULGARICUS 1 EACH TAB.CHEW PO SCH ×2 (09:00→17:00)
[2016-05-03] MEDS: APIXABAN 5 MG TABLET PO SCH ×2 (09:00→17:00)
[2016-05-03] MEDS: PROSOURCE / PROSTAT (PYXIS) 30 ML UDC GT SCH ×2 (09:00→17:00)
[2016-05-03] MEDS ORDERED: IV NS 0.9% 250 ML IV ONE (09:46)
[2016-05-03] MEDS ORDERED: IV SET PRIMARY PUMP SET 1 EA INFUS.SET MC ONE (09:46)
[2016-05-03] MEDS ORDERED: FILTER SET SAVER IV SET 1 EA INFUS.SET MC ONE (09:46)
[2016-05-03] MEDS: LANOLIN/MIN OIL/PETROLAT,WHT 3.5 GM TUBE EACHEYE SCH ×2 (09:51→17:28)
[2016-05-03] MEDS: POTASSIUM CL. PREMIX PERIPHER. 50 ML IV SCH ×2 (09:51→10:52)
[2016-05-03] MEDS: FAMOTIDINE (20 MG) 20 MG TABLET PO SCH ×2 (09:59→17:31)
[2016-05-03] MEDS: NEOMY SULF/BACITRAC ZN/POLY 15 GM TUBE TP SCH ×2 (10:52→17:40)
[2016-05-03] MEDS: LEVOFLOXACIN 500 MG /D5W 100ML 500 MG in PREMIX 1 EA IV SCH (12:28)
[2016-05-03] MEDS ORDERED: [UNRECOGNIZED DRUG - OTHER] IV SCH ×7 (14:00)
[2016-05-03] MEDS ORDERED: SODIUM ACETATE IV SCH ×7 (14:00)
[2016-05-03] MEDS ORDERED: TPN ADDITIVES IV SCH ×7 (14:00)
[2016-05-03] MEDS ORDERED: SODIUM CHLORIDE IV SCH ×7 (14:00)
[2016-05-03] MEDS ORDERED: APIXABAN 5 MG TABLET GT SCH (17:55)
[2016-05-03] MEDS ORDERED: TPN BAG #3 IV SCH ×9 (21:00)
[2016-05-04] VITALS (75 sets, daily range): BP systolic 84–137; BP diastolic 44–81
[2016-05-04] MEDS: NOREPINEPHRINE 16 MG in IV D5W 500 ML IV PRN ×3 (02:30→16:38)
[2016-05-04 05:04] LABS: BASOPHILS % (AUTO) 0.1 % (0.0-2.0); DIFF TOTAL % 100 %; EOSINOPHILS # (AUTO) 1.3 /CMM (0.0-0.7); EOSINOPHILS % (AUTO) 8.6 % (0.0-6.0); HEMATOCRIT 27 % (33-45); HEMOGLOBIN 8.9 g/dL (11.5-14.8); LYMPHOCYTES % (AUTO) 13.4 % (20.0-44.0); MEAN CORPUSCULAR HEMOGLOBIN 30 PG (26.0-33.0); MEAN CORPUSCULAR HGB CONC 32 g/dl (31.0-36.0); MEAN CORPUSCULAR VOLUME 91 fL (82-100); MONOCYTES % (AUTO) 6.7 % (2.0-12.0); NEUTROPHILS # (AUTO) 10.5 /CMM (1.8-8.9); NEUTROPHILS % (AUTO) 71.2 % (43.0-81.0); PLATELET COUNT (AUTO) 58 /CMM (150-450); RED BLOOD CELL COUNT(AUTO) 2.99 MIL/uL (4.0-5.2)
[2016-05-04 05:09] LABS: WHITE BLOOD COUNT (AUTO) 17.5 K/uL (4.3-11.0)
[2016-05-04 05:15] LABS: CALCIUM, SERUM 8.7 mg/dL (8.5-10.1); CREATININE 5.6 mg/dL (0.6-1.3); PHOSPHORUS 1.6 mg/dL (2.5-4.9); POTASSIUM 3.4 mmol/L (3.5-5.1)
[2016-05-04] MEDS: METOCLOPRAMIDE HCL 10 MG/2 ML VIAL IV SCH ×4 (05:41→23:33)
[2016-05-04] MEDS: INSULIN REGULAR, HUMAN 100 UNIT/ML 3 ML VIAL SQ PRN ×4 (05:41→23:36)
[2016-05-04] MEDS: BLOOD SUGAR DIAGNOSTIC 1 EACH STRIP IN SCH ×4 (05:41→23:33)
[2016-05-04 05:55] LABS: ANISOCYTOSIS 2+; BAND % (MANUAL) 3 % (0.0-5.0); BASOPHILS % (MANUAL) 0 % (0.0-2.0); EOSINOPHILS % (MANUAL) 18 % (0-4); LYMPHOCYTES % (MANUAL) 8 % (16-48); PLATELET ESTIMATE DECREASED; POLYCHROMASIA 1+
[2016-05-04] MEDS: INSULIN DETEMIR 100 UNIT/ML CARTRIDGE SQ SCH (08:09)
[2016-05-04] MEDS: PANTOPRAZOLE 40 MG VIAL IV SCH (08:09)
[2016-05-04] MEDS: LANOLIN/MIN OIL/PETROLAT,WHT 3.5 GM TUBE EACHEYE SCH ×2 (08:25→16:42)
[2016-05-04] MEDS: PROSOURCE / PROSTAT (PYXIS) 30 ML UDC GT SCH ×2 (08:25→16:42)
[2016-05-04] MEDS: ACIDOPHILUS/BULGARICUS 1 EACH TAB.CHEW PO SCH (08:25)
[2016-05-04] MEDS: FAMOTIDINE (20 MG) 20 MG TABLET PO SCH (08:26)
[2016-05-04] MEDS: NEOMY SULF/BACITRAC ZN/POLY 15 GM TUBE TP SCH ×2 (08:26→16:42)
[2016-05-04] MEDS: GABAPENTIN 100 MG CAPSULE PO SCH (08:26)
[2016-05-04] MEDS: TRAMADOL HCL 50 MG TABLET PO SCH (08:26)
[2016-05-04] MEDS ORDERED: TPN BAG #4 IV PRN ×14 (10:00→10:18)
[2016-05-04] MEDS: ALBUMIN 25% 25 GM in PREMIX 1 EA IV PRN (10:07)
[2016-05-04] MEDS: PHENYLEPHRINE 40 MG in IV NS 0.9% 250 ML IV PRN (11:40)
[2016-05-04] MEDS ORDERED: ERYTHROMYCIN 250 MG in IV NS 0.9% 100 ML IV SCH (14:00)
[2016-05-04] MEDS ORDERED: TPN BAG #5 IV PRN ×9 (14:00)
[2016-05-04] MEDS ORDERED: Sodium Phosphate 15 MMOL in IV D5W 250 ML IV ONE (16:00)
[2016-05-04] MEDS ORDERED: IV SET PRIMARY 1 EA INFUS.SET MC ONE (16:37)
[2016-05-04] MEDS ORDERED: FILTER SET SAVER IV SET 1 EA INFUS.SET MC ONE (16:38)
[2016-05-04] MEDS ORDERED: IV NS 0.9% 250 ML IV ONE (16:38)
[2016-05-04] MEDS: ERYTHROMYCIN 250 MG in IV NS 0.9% 100 ML IV SCH ×2 (16:41→21:39)
[2016-05-04] MEDS ORDERED: IV SET PRIMARY PUMP SET 1 EA INFUS.SET MC ONE (16:43)
[2016-05-04] MEDS ORDERED: OSELTAMIVIR PHOSPHATE 75 MG CAPSULE PO SCH (17:30)
[2016-05-04] MEDS ORDERED: MEROPENEM 500 MG in IV NS 0.9% 50 ML IV SCH (18:00)
[2016-05-04] MEDS: MORPHINE SULFATE INJ 4 MG/ML DISP.SYRIN IV PRN (18:08)
[2016-05-04 19:00] LABS: LACTIC ACID 3.7 mmol/L (0.4-2.0)
[2016-05-04 19:19] LABS: *LACTIC ACID REFLEX FLAG YES
[2016-05-04] MEDS ORDERED: FEE PK DOSING 1 MIN EA MC ONE (19:49)
[2016-05-04] MEDS: MEROPENEM 500 MG in IV NS 0.9% 50 ML IV SCH (20:22)
[2016-05-04 20:27] LABS: BILIRUBIN,DIRECT 12.3 mg/dL (0.0-0.2); BILIRUBIN,TOTAL 17.9 mg/dL (0.2-1.0)
[2016-05-04] MEDS ORDERED: VANCOMYCIN 1 GM in IV D5W 250 ML IV ONE (21:00)
[2016-05-05] VITALS (106 sets, daily range): BP systolic 63–150; BP diastolic 29–76
[2016-05-05] MEDS: ERYTHROMYCIN 250 MG in IV NS 0.9% 100 ML IV SCH ×4 (05:00→22:01)
[2016-05-05] MEDS: BLOOD SUGAR DIAGNOSTIC 1 EACH STRIP IN SCH ×4 (05:10→23:31)
[2016-05-05] MEDS: INSULIN REGULAR, HUMAN 100 UNIT/ML 3 ML VIAL SQ PRN ×3 (05:10→23:32)
[2016-05-05 05:14] LABS: BASOPHILS # (AUTO) 0.1 /CMM (0.0-0.2); BASOPHILS % (AUTO) 0.3 % (0.0-2.0); DIFF TOTAL % 100 %; EOSINOPHILS # (AUTO) 1.3 /CMM (0.0-0.7); EOSINOPHILS % (AUTO) 7.8 % (0.0-6.0); HEMATOCRIT 25 % (33-45); HEMOGLOBIN 8.1 g/dL (11.5-14.8); LYMPHOCYTES # (AUTO) 0.6 /CMM (0.8-4.8); LYMPHOCYTES % (AUTO) 3.5 % (20.0-44.0); MEAN CORPUSCULAR HEMOGLOBIN 30 PG (26.0-33.0); MEAN CORPUSCULAR HGB CONC 32 g/dl (31.0-36.0); MEAN CORPUSCULAR VOLUME 92 fL (82-100); MONOCYTES # (AUTO) 1.2 /CMM (0.1-1.30); MONOCYTES % (AUTO) 7.3 % (2.0-12.0); NEUTROPHILS # (AUTO) 13.7 /CMM (1.8-8.9); NEUTROPHILS % (AUTO) 81.1 % (43.0-81.0); RED BLOOD CELL COUNT(AUTO) 2.74 MIL/uL (4.0-5.2); WHITE BLOOD COUNT (AUTO) 16.9 K/uL (4.3-11.0)
[2016-05-05 05:17] LABS: PLATELET COUNT (AUTO) 33 /CMM (150-450)
[2016-05-05 05:28] LABS: BILIRUBIN,TOTAL 19.3 mg/dL (0.2-1.0); CREATININE 4.2 mg/dL (0.6-1.3); PHOSPHORUS 1.5 mg/dL (2.5-4.9); POTASSIUM 3.5 mmol/L (3.5-5.1); TOTAL PROTEIN, SERUM 5.4 g/dL (6.4-8.2)
[2016-05-05] MEDS: METOCLOPRAMIDE HCL 10 MG/2 ML VIAL IV SCH ×3 (05:42→17:33)
[2016-05-05 05:51] LABS: BAND % (MANUAL) 3 % (0.0-5.0); BASOPHILS % (MANUAL) 0 % (0.0-2.0); EOSINOPHILS % (MANUAL) 11 % (0-4); LYMPHOCYTES % (MANUAL) 5 % (16-48); PLATELET ESTIMATE DECREASED; POLYCHROMASIA 1+
[2016-05-05 05:52] LABS: ANISOCYTOSIS 2+
[2016-05-05] MEDS: INSULIN DETEMIR 100 UNIT/ML CARTRIDGE SQ SCH (06:36)
[2016-05-05] MEDS ORDERED: TPN BAG #6 IV PRN ×15 (07:00→09:09)
[2016-05-05] MEDS ORDERED: VANCOMYCIN 500 MG in IV D5W 100 ML IV PRN (08:00)
[2016-05-05] MEDS: LANOLIN/MIN OIL/PETROLAT,WHT 3.5 GM TUBE EACHEYE SCH ×2 (08:12→17:01)
[2016-05-05] MEDS: NEOMY SULF/BACITRAC ZN/POLY 15 GM TUBE TP SCH ×2 (08:13→17:02)
[2016-05-05] MEDS: PANTOPRAZOLE 40 MG VIAL IV SCH (08:13)
[2016-05-05] MEDS ORDERED: FILTER SET SAVER IV SET 1 EA INFUS.SET MC ONE ×2 (08:56→21:54)
[2016-05-05] MEDS ORDERED: TPN BAG #8 IV PRN ×8 (09:30)
[2016-05-05] MEDS ORDERED: TPN BAG #7 IV PRN ×11 (09:30)
[2016-05-05 10:29] LABS: ABG TOTAL HEMOGLOBIN 8.7 G/dL (12.0-16.0); ALLEN TEST Pass
[2016-05-05 11:39] LABS: ABG BASE EXCESS -0.1 mmol/L; ABG HCO3 24.3 mmol/L; ABG PH 7.423 (7.350-7.450); ABG PO2 56.9 mmHg (75.0-100.0); AaDO2 112.4 mmHg
[2016-05-05] MEDS: LEVOFLOXACIN 500 MG /D5W 100ML 500 MG in PREMIX 1 EA IV SCH (12:24)
[2016-05-05] MEDS: NOREPINEPHRINE 16 MG in IV D5W 500 ML IV PRN ×2 (12:57→20:41)
[2016-05-05 15:02] LABS: RETICULOCYTE COUNT 5.5 % (0.6-2.5)
[2016-05-05] MEDS ORDERED: SECONDARY IV SET 1 EA INFUS.SET MC ONE (15:15)
[2016-05-05 15:44] LABS: THYROID STIMULATING HORMONE 1.927 uIU/mL (0.358-3.74); URIC ACID 4.3 mg/dL (2.6-7.2)
[2016-05-05] MEDS: ALBUMIN 25% 25 GM in PREMIX 1 EA IV PRN (15:52)
[2016-05-05] MEDS ORDERED: IV NS 0.9% 500 ML BAG IV PRN (17:00)
[2016-05-05] MEDS: PHENYLEPHRINE 40 MG in IV NS 0.9% 250 ML IV PRN (17:01)
[2016-05-05] MEDS ORDERED: IV NS 0.9% 500 ML IV ONE (17:30)
[2016-05-05 18:41] LABS: PLATELET COUNT (AUTO) 36 /CMM (150-450)
[2016-05-05 20:50] LABS: INR 2.59 (0.87-1.13); PARTIAL THROMBOPLASTIN TIME 54 SEC (23-34); PROTHROMBIN TIME 28.2 SECS (9.5-12.7)
[2016-05-05] MEDS: MEROPENEM 500 MG in IV NS 0.9% 50 ML IV SCH (21:03)
[2016-05-05] MEDS ORDERED: BLOOD IV SET 1 EA INFUS.SET MC ONE (21:53)
[2016-05-05] MEDS ORDERED: IV SET PRIMARY PUMP SET 1 EA INFUS.SET MC ONE (21:54)
[2016-05-06] VITALS (80 sets, daily range): BP systolic 85–135; BP diastolic 32–87
[2016-05-06] MEDS: METOCLOPRAMIDE HCL 10 MG/2 ML VIAL IV SCH ×5 (00:27→23:52)
[2016-05-06] MEDS ORDERED: IV NS 0.9% 250 ML IV ONE ×2 (01:05→17:28)
[2016-05-06] MEDS: PHENYLEPHRINE 40 MG in IV NS 0.9% 250 ML IV PRN (02:47)
[2016-05-06] MEDS: NOREPINEPHRINE 16 MG in IV D5W 500 ML IV PRN ×3 (03:30→21:51)
[2016-05-06] MEDS ORDERED: BLOOD IV SET 1 EA INFUS.SET MC ONE (03:34)
[2016-05-06] MEDS: ERYTHROMYCIN 250 MG in IV NS 0.9% 100 ML IV SCH ×4 (04:00→23:57)
[2016-05-06] MEDS: BLOOD SUGAR DIAGNOSTIC 1 EACH STRIP IN SCH ×3 (05:40→17:04)
[2016-05-06] MEDS: INSULIN REGULAR, HUMAN 100 UNIT/ML 3 ML VIAL SQ PRN ×3 (05:42→17:10)
[2016-05-06 07:15] LABS: DIFF TOTAL % 100 %; EOSINOPHILS # (AUTO) 1.3 /CMM (0.0-0.7); EOSINOPHILS % (AUTO) 7.7 % (0.0-6.0); HEMATOCRIT 23 % (33-45); HEMOGLOBIN 7.6 g/dL (11.5-14.8); LYMPHOCYTES # (AUTO) 2.1 /CMM (0.8-4.8); LYMPHOCYTES % (AUTO) 12.8 % (20.0-44.0); MEAN CORPUSCULAR HEMOGLOBIN 32 PG (26.0-33.0); MEAN CORPUSCULAR HGB CONC 33 g/dl (31.0-36.0); MEAN CORPUSCULAR VOLUME 95 fL (82-100); MONOCYTES # (AUTO) 0.8 /CMM (0.1-1.30); MONOCYTES % (AUTO) 4.7 % (2.0-12.0); NEUTROPHILS # (AUTO) 12.5 /CMM (1.8-8.9); NEUTROPHILS % (AUTO) 74.8 % (43.0-81.0); RED BLOOD CELL COUNT(AUTO) 2.41 MIL/uL (4.0-5.2); WHITE BLOOD COUNT (AUTO) 16.7 K/uL (4.3-11.0)
[2016-05-06 07:26] LABS: PLATELET COUNT (AUTO) 33 /CMM (150-450)
[2016-05-06 07:35] LABS: CALCIUM, SERUM 8.3 mg/dL (8.5-10.1); CREATININE 3.7 mg/dL (0.6-1.3); PHOSPHORUS 1.6 mg/dL (2.5-4.9); POTASSIUM 3.7 mmol/L (3.5-5.1)
[2016-05-06] MEDS: PANTOPRAZOLE 40 MG VIAL IV SCH (08:31)
[2016-05-06] MEDS: NEOMY SULF/BACITRAC ZN/POLY 15 GM TUBE TP SCH ×2 (08:32→16:28)
[2016-05-06] MEDS: LANOLIN/MIN OIL/PETROLAT,WHT 3.5 GM TUBE EACHEYE SCH ×2 (08:32→16:27)
[2016-05-06] MEDS: INSULIN DETEMIR 100 UNIT/ML CARTRIDGE SQ SCH (08:40)
[2016-05-06 09:32] LABS: ANISOCYTOSIS 1+; EOSINOPHILS % (MANUAL) 3 % (0-4); HYPOCHROMASIA 1+; LYMPHOCYTES % (MANUAL) 10 % (16-48); PLATELET ESTIMATE DECREASED
[2016-05-06] MEDS ORDERED: TPN BAG #9 IV PRN ×8 (16:30)
[2016-05-06] MEDS ORDERED: TPN BAG #10 IV PRN ×10 (16:30)
[2016-05-06] MEDS: MEROPENEM 500 MG in IV NS 0.9% 50 ML IV SCH (21:50)
[2016-05-07] VITALS (61 sets, daily range): BP systolic 88–168; BP diastolic 34–93
[2016-05-07] MEDS: INSULIN REGULAR, HUMAN 100 UNIT/ML 3 ML VIAL SQ PRN ×3 (00:07→17:36)
[2016-05-07] MEDS: BLOOD SUGAR DIAGNOSTIC 1 EACH STRIP IN SCH ×4 (00:08→17:29)
[2016-05-07 05:08] LABS: BASOPHILS % (AUTO) 0.3 % (0.0-2.0); DIFF TOTAL % 100 %; EOSINOPHILS # (AUTO) 0.6 /CMM (0.0-0.7); EOSINOPHILS % (AUTO) 4.4 % (0.0-6.0); HEMATOCRIT 22 % (33-45); HEMOGLOBIN 7.1 g/dL (11.5-14.8); LYMPHOCYTES # (AUTO) 1.8 /CMM (0.8-4.8); LYMPHOCYTES % (AUTO) 12.6 % (20.0-44.0); MEAN CORPUSCULAR HEMOGLOBIN 31 PG (26.0-33.0); MEAN CORPUSCULAR HGB CONC 32 g/dl (31.0-36.0); MEAN CORPUSCULAR VOLUME 95 fL (82-100); MONOCYTES # (AUTO) 0.7 /CMM (0.1-1.30); MONOCYTES % (AUTO) 5.1 % (2.0-12.0); NEUTROPHILS # (AUTO) 11.3 /CMM (1.8-8.9); NEUTROPHILS % (AUTO) 77.6 % (43.0-81.0); RED BLOOD CELL COUNT(AUTO) 2.34 MIL/uL (4.0-5.2); WHITE BLOOD COUNT (AUTO) 14.5 K/uL (4.3-11.0)
[2016-05-07 05:29] LABS: ALBUMIN 1.9 g/dL (3.4-5.0); CALCIUM, SERUM 7.8 mg/dL (8.5-10.1); CREATININE 4.2 mg/dL (0.6-1.3); PHOSPHORUS 1.8 mg/dL (2.5-4.9); POTASSIUM 3.8 mmol/L (3.5-5.1); TOTAL PROTEIN, SERUM 5.3 g/dL (6.4-8.2)
[2016-05-07] MEDS: ERYTHROMYCIN 250 MG in IV NS 0.9% 100 ML IV SCH ×3 (05:45→17:48)
[2016-05-07 05:46] LABS: PLATELET COUNT (AUTO) 38 /CMM (150-450)
[2016-05-07] MEDS: METOCLOPRAMIDE HCL 10 MG/2 ML VIAL IV SCH ×3 (05:48→17:32)
[2016-05-07] MEDS: PANTOPRAZOLE 40 MG VIAL IV SCH (08:22)
[2016-05-07] MEDS: INSULIN DETEMIR 100 UNIT/ML CARTRIDGE SQ SCH (08:25)
[2016-05-07] MEDS: LANOLIN/MIN OIL/PETROLAT,WHT 3.5 GM TUBE EACHEYE SCH ×2 (08:26→17:28)
[2016-05-07] MEDS: NEOMY SULF/BACITRAC ZN/POLY 15 GM TUBE TP SCH ×2 (08:26→17:27)
[2016-05-07] MEDS ORDERED: SECONDARY IV SET 1 EA INFUS.SET MC ONE (08:47)
[2016-05-07] MEDS: ALBUMIN 25% 25 GM in PREMIX 1 EA IV PRN (09:07)
[2016-05-07] MEDS ORDERED: FILTER SET SAVER IV SET 1 EA INFUS.SET MC ONE (09:08)
[2016-05-07] MEDS ORDERED: IV SET PRIMARY PUMP SET 1 EA INFUS.SET MC ONE ×2 (09:08→10:34)
[2016-05-07] MEDS ORDERED: EPOETIN ALFA (10,000 UNIT) 10,000 UNIT/ML VIAL SQ ONE (10:00)
[2016-05-07] MEDS: PHENYLEPHRINE 40 MG in IV NS 0.9% 250 ML IV PRN (10:32)
[2016-05-07] MEDS ORDERED: BLOOD IV SET 1 EA INFUS.SET MC ONE ×2 (10:47→22:41)
[2016-05-07] MEDS ORDERED: IV NS 0.9% 250 ML IV ONE (10:47)
[2016-05-07] MEDS: NOREPINEPHRINE 16 MG in IV D5W 500 ML IV PRN ×2 (10:58→17:29)
[2016-05-07 13:00] LABS: EOSINOPHILS % (MANUAL) 4 % (0-4); LYMPHOCYTES % (MANUAL) 13 % (16-48); PLATELET ESTIMATE DECREASED; RBC MORPHOLOGY COMMENT NORMAL RBC MORPH
[2016-05-07] MEDS ORDERED: DESMOPRESSIN 20 MCG in IV NS 0.9% 50 ML IV SCH ×2 (15:00→21:00)
[2016-05-07] MEDS ORDERED: DESMOPRESSIN 20 MCG in IV NS 0.9% 50 ML IV ONE (17:00)
[2016-05-07] MEDS: MORPHINE SULFATE INJ 4 MG/ML DISP.SYRIN IV PRN (18:53)
[2016-05-07] MEDS: LORAZEPAM INJ 2 MG/ML VIAL IV PRN (21:12)
[2016-05-07] MEDS: MEROPENEM 500 MG in IV NS 0.9% 50 ML IV SCH (21:12)
[2016-05-07] MEDS ORDERED: IV NS 0.9% 500 ML IV ONE (23:40)
[2016-05-08] VITALS (102 sets, daily range): BP systolic 88–155; BP diastolic 23–70
[2016-05-08] MEDS: ERYTHROMYCIN 250 MG in IV NS 0.9% 100 ML IV SCH ×4 (00:28→17:10)
[2016-05-08] MEDS: METOCLOPRAMIDE HCL 10 MG/2 ML VIAL IV SCH ×4 (00:29→17:35)
[2016-05-08] MEDS: BLOOD SUGAR DIAGNOSTIC 1 EACH STRIP IN SCH ×4 (00:33→17:10)
[2016-05-08] MEDS: INSULIN REGULAR, HUMAN 100 UNIT/ML 3 ML VIAL SQ PRN ×3 (00:33→17:12)
[2016-05-08 04:38] LABS: BASOPHILS % (AUTO) 0.2 % (0.0-2.0); DIFF TOTAL % 100 %; EOSINOPHILS # (AUTO) 0.8 /CMM (0.0-0.7); EOSINOPHILS % (AUTO) 5.3 % (0.0-6.0); HEMATOCRIT 24 % (33-45); LYMPHOCYTES # (AUTO) 1.7 /CMM (0.8-4.8); MEAN CORPUSCULAR HEMOGLOBIN 31 PG (26.0-33.0); MEAN CORPUSCULAR HGB CONC 33 g/dl (31.0-36.0); MEAN CORPUSCULAR VOLUME 94 fL (82-100); MONOCYTES % (AUTO) 6.2 % (2.0-12.0); NEUTROPHILS % (AUTO) 77.3 % (43.0-81.0); RED BLOOD CELL COUNT(AUTO) 2.56 MIL/uL (4.0-5.2); WHITE BLOOD COUNT (AUTO) 15.6 K/uL (4.3-11.0)
[2016-05-08 04:48] LABS: PLATELET COUNT (AUTO) 35 /CMM (150-450)
[2016-05-08 04:57] LABS: CALCIUM, SERUM 8.5 mg/dL (8.5-10.1); CREATININE 3.8 mg/dL (0.6-1.3); PHOSPHORUS 2.2 mg/dL (2.5-4.9); POTASSIUM 3.9 mmol/L (3.5-5.1)
[2016-05-08 05:27] LABS: BAND % (MANUAL) 5 % (0.0-5.0); EOSINOPHILS % (MANUAL) 7 % (0-4); LYMPHOCYTES % (MANUAL) 11 % (16-48)
[2016-05-08] MEDS: NOREPINEPHRINE 16 MG in IV D5W 500 ML IV PRN ×2 (05:53→16:19)
[2016-05-08] MEDS ORDERED: TPN BAG #11 IV PRN ×8 (07:30)
[2016-05-08] MEDS ORDERED: IV SET PRIMARY PUMP SET 1 EA INFUS.SET MC ONE (08:07)
[2016-05-08] MEDS: NEOMY SULF/BACITRAC ZN/POLY 15 GM TUBE TP SCH ×2 (08:16→16:18)
[2016-05-08] MEDS: PANTOPRAZOLE 40 MG VIAL IV SCH (08:17)
[2016-05-08] MEDS: LANOLIN/MIN OIL/PETROLAT,WHT 3.5 GM TUBE EACHEYE SCH ×2 (08:17→16:18)
[2016-05-08] MEDS: INSULIN DETEMIR 100 UNIT/ML CARTRIDGE SQ SCH (08:31)
[2016-05-08 08:44] LABS: ABG BASE EXCESS -2.2 mmol/L; ABG HCO3 22.4 mmol/L; ABG PCO2 37.3 mmHg (35.0-45.0); ABG PH 7.397 (7.350-7.450); ABG PO2 101.1 mmHg (75.0-100.0); ABG TOTAL HEMOGLOBIN 8.1 G/dL (12.0-16.0); AaDO2 141.2 mmHg; O2Hb 93.6 % (94.0-97.0)
[2016-05-08] MEDS ORDERED: TPN BAG #12 IV PRN ×10 (14:00)
[2016-05-08] MEDS ORDERED: TPN BAG #13 IV PRN ×8 (14:00)
[2016-05-08] MEDS ORDERED: IV NS 0.9% 250 ML IV ONE (15:07)
[2016-05-08] MEDS ORDERED: BLOOD IV SET 1 EA INFUS.SET MC ONE (15:07)
[2016-05-08] MEDS ORDERED: SECONDARY IV SET 1 EA INFUS.SET MC ONE (16:15)
[2016-05-08] MEDS: DESMOPRESSIN 20 MCG in IV NS 0.9% 50 ML IV SCH (16:19)
[2016-05-08] MEDS: MEROPENEM 500 MG in IV NS 0.9% 50 ML IV SCH (20:49)
[2016-05-09] VITALS (102 sets, daily range): BP systolic 80–131; BP diastolic 33–64
[2016-05-09] MEDS: METOCLOPRAMIDE HCL 10 MG/2 ML VIAL IV SCH ×4 (00:46→17:39)
[2016-05-09 02:29] LABS: CA 27.29 24.3 U/mL (0.0-38.6)
[2016-05-09 04:45] LABS: BASOPHILS % (AUTO) 0.1 % (0.0-2.0); DIFF TOTAL % 100 %; EOSINOPHILS # (AUTO) 0.7 /CMM (0.0-0.7); EOSINOPHILS % (AUTO) 6.8 % (0.0-6.0); HEMATOCRIT 23 % (33-45); HEMOGLOBIN 7.4 g/dL (11.5-14.8); LYMPHOCYTES # (AUTO) 1.5 /CMM (0.8-4.8); LYMPHOCYTES % (AUTO) 15.1 % (20.0-44.0); MEAN CORPUSCULAR HEMOGLOBIN 32 PG (26.0-33.0); MEAN CORPUSCULAR HGB CONC 33 g/dl (31.0-36.0); MEAN CORPUSCULAR VOLUME 96 fL (82-100); MONOCYTES # (AUTO) 0.2 /CMM (0.1-1.30); MONOCYTES % (AUTO) 1.9 % (2.0-12.0); NEUTROPHILS # (AUTO) 7.3 /CMM (1.8-8.9); NEUTROPHILS % (AUTO) 76.1 % (43.0-81.0); RED BLOOD CELL COUNT(AUTO) 2.35 MIL/uL (4.0-5.2); WHITE BLOOD COUNT (AUTO) 9.6 K/uL (4.3-11.0)
[2016-05-09 04:49] LABS: PLATELET COUNT (AUTO) 39 /CMM (150-450)
[2016-05-09 04:54] LABS: CALCIUM, SERUM 8.7 mg/dL (8.5-10.1); CREATININE 4.2 mg/dL (0.6-1.3); PHOSPHORUS 2.7 mg/dL (2.5-4.9); POTASSIUM 4.2 mmol/L (3.5-5.1)
[2016-05-09] MEDS ORDERED: IV SET PRIMARY PUMP SET 1 EA INFUS.SET MC ONE ×2 (04:59→08:00)
[2016-05-09] MEDS ORDERED: FILTER SET SAVER IV SET 1 EA INFUS.SET MC ONE (04:59)
[2016-05-09] MEDS: BLOOD SUGAR DIAGNOSTIC 1 EACH STRIP IN SCH ×4 (05:40→17:23)
[2016-05-09] MEDS: ERYTHROMYCIN 250 MG in IV NS 0.9% 100 ML IV SCH ×5 (05:41→17:17)
[2016-05-09 05:57] LABS: BAND % (MANUAL) 9 % (0.0-5.0); BASOPHILS % (MANUAL) 0 % (0.0-2.0); EOSINOPHILS % (MANUAL) 12 % (0-4); LYMPHOCYTES % (MANUAL) 10 % (16-48)
[2016-05-09 05:58] LABS: ANISOCYTOSIS 3+; OVALOCYTES 1+; PLATELET ESTIMATE DECREASED; POLYCHROMASIA 2+
[2016-05-09] MEDS: INSULIN DETEMIR 100 UNIT/ML CARTRIDGE SQ SCH (06:57)
[2016-05-09] MEDS ORDERED: SECONDARY IV SET 1 EA INFUS.SET MC ONE (07:59)
[2016-05-09] MEDS ORDERED: IV NS 0.9% 250 ML IV ONE (07:59)
[2016-05-09] MEDS: PANTOPRAZOLE 40 MG VIAL IV SCH (08:05)
[2016-05-09] MEDS: LANOLIN/MIN OIL/PETROLAT,WHT 3.5 GM TUBE EACHEYE SCH ×2 (08:06→16:09)
[2016-05-09] MEDS: NEOMY SULF/BACITRAC ZN/POLY 15 GM TUBE TP SCH ×2 (08:06→16:09)
[2016-05-09 09:35] LABS: ABG BASE EXCESS -2.5 mmol/L; ABG HCO3 21.1 mmol/L; ABG PCO2 32.4 mmHg (35.0-45.0); ABG PH 7.432 (7.350-7.450); ABG PO2 78.9 mmHg (75.0-100.0); ABG TOTAL HEMOGLOBIN 11.3 G/dL (12.0-16.0); O2Hb 92.8 % (94.0-97.0)
[2016-05-09] MEDS: MORPHINE SULFATE INJ 4 MG/ML DISP.SYRIN IV PRN (09:42)
[2016-05-09] MEDS: NOREPINEPHRINE 16 MG in IV D5W 500 ML IV PRN ×3 (10:31→23:35)
[2016-05-09] MEDS: ALBUMIN 25% 25 GM in PREMIX 1 EA IV PRN (10:33)
[2016-05-09] MEDS ORDERED: LACTULOSE 10 G/15 ML UDC (PYXIS) PO PRN (12:00)
[2016-05-09] MEDS ORDERED: IV NS 0.9% 500 ML IV ONE (15:56)
[2016-05-09] MEDS: DESMOPRESSIN 20 MCG in IV NS 0.9% 50 ML IV SCH (16:09)
[2016-05-09] MEDS ORDERED: TPN BAG #15 IV PRN ×16 (16:30)
[2016-05-09] MEDS ORDERED: TPN BAG #14 IV PRN ×10 (16:30)
[2016-05-09] MEDS: INSULIN REGULAR, HUMAN 100 UNIT/ML 3 ML VIAL SQ PRN (17:24)
[2016-05-09] MEDS: MEROPENEM 500 MG in IV NS 0.9% 50 ML IV SCH (20:33)
[2016-05-10] VITALS (88 sets, daily range): BP systolic 81–153; BP diastolic 32–70
[2016-05-10] MEDS: ERYTHROMYCIN 250 MG in IV NS 0.9% 100 ML IV SCH ×4 (00:13→18:07)
[2016-05-10] MEDS: BLOOD SUGAR DIAGNOSTIC 1 EACH STRIP IN SCH ×4 (00:13→18:07)
[2016-05-10] MEDS: INSULIN REGULAR, HUMAN 100 UNIT/ML 3 ML VIAL SQ PRN ×4 (00:14→18:12)
[2016-05-10] MEDS: METOCLOPRAMIDE HCL 10 MG/2 ML VIAL IV SCH ×4 (00:14→18:07)
[2016-05-10] MEDS: MORPHINE SULFATE INJ 2 MG/ML DISP.SYRIN IV PRN (01:51)
[2016-05-10] MEDS: LORAZEPAM INJ 2 MG/ML VIAL IV PRN ×2 (03:02→22:52)
[2016-05-10 04:58] LABS: BASOPHILS % (AUTO) 0.1 % (0.0-2.0); DIFF TOTAL % 100 %; EOSINOPHILS # (AUTO) 0.4 /CMM (0.0-0.7); HEMATOCRIT 23 % (33-45); HEMOGLOBIN 7.5 g/dL (11.5-14.8); LYMPHOCYTES # (AUTO) 2.1 /CMM (0.8-4.8); LYMPHOCYTES % (AUTO) 11.6 % (20.0-44.0); MEAN CORPUSCULAR HEMOGLOBIN 32 PG (26.0-33.0); MEAN CORPUSCULAR HGB CONC 33 g/dl (31.0-36.0); MEAN CORPUSCULAR VOLUME 97 fL (82-100); MONOCYTES # (AUTO) 0.2 /CMM (0.1-1.30); MONOCYTES % (AUTO) 0.8 % (2.0-12.0); NEUTROPHILS # (AUTO) 15.4 /CMM (1.8-8.9); NEUTROPHILS % (AUTO) 85.5 % (43.0-81.0); PLATELET COUNT (AUTO) 56 /CMM (150-450); RED BLOOD CELL COUNT(AUTO) 2.35 MIL/uL (4.0-5.2)
[2016-05-10] MEDS ORDERED: NOREPINEPHRINE 4 MG/4 ML AMPUL IV ONE (05:17)
[2016-05-10] MEDS ORDERED: IV D5W 500 ML IV ONE (05:18)
[2016-05-10 05:26] LABS: CALCIUM, SERUM 8.7 mg/dL (8.5-10.1); CREATININE 4.8 mg/dL (0.6-1.3); PHOSPHORUS 3.1 mg/dL (2.5-4.9); POTASSIUM 4.8 mmol/L (3.5-5.1)
[2016-05-10] MEDS: NOREPINEPHRINE 16 MG in IV D5W 500 ML IV PRN ×4 (05:39→22:55)
[2016-05-10 06:10] LABS: ANISOCYTOSIS 2+; BAND % (MANUAL) 19 % (0.0-5.0); BASOPHILS % (MANUAL) 0 % (0.0-2.0); EOSINOPHILS % (MANUAL) 6 % (0-4); LYMPHOCYTES % (MANUAL) 19 % (16-48); PLATELET ESTIMATE DECREASED; POLYCHROMASIA 2+
[2016-05-10] MEDS: INSULIN DETEMIR 100 UNIT/ML CARTRIDGE SQ SCH (07:59)
[2016-05-10] MEDS: PANTOPRAZOLE 40 MG VIAL IV SCH (08:16)
[2016-05-10] MEDS: NEOMY SULF/BACITRAC ZN/POLY 15 GM TUBE TP SCH ×2 (08:16→17:23)
[2016-05-10] MEDS: LANOLIN/MIN OIL/PETROLAT,WHT 3.5 GM TUBE EACHEYE SCH ×2 (08:16→17:22)
[2016-05-10] MEDS ORDERED: IV SET PRIMARY PUMP SET 1 EA INFUS.SET MC ONE ×4 (09:20→23:53)
[2016-05-10] MEDS ORDERED: FILTER SET SAVER IV SET 1 EA INFUS.SET MC ONE ×2 (09:21→23:53)
[2016-05-10] MEDS: PHENYLEPHRINE 40 MG in IV NS 0.9% 250 ML IV PRN ×3 (09:25→17:22)
[2016-05-10 09:51] LABS: ABG BASE EXCESS -9.5 mmol/L; ABG HCO3 15.8 mmol/L; ABG PCO2 31.6 mmHg (35.0-45.0); ABG PH 7.316 (7.350-7.450); ABG PO2 75.4 mmHg (75.0-100.0); ABG TOTAL HEMOGLOBIN 7.9 G/dL (12.0-16.0); AaDO2 173.5 mmHg; O2Hb 89.8 % (94.0-97.0)
[2016-05-10] MEDS ORDERED: SECONDARY IV SET 1 EA INFUS.SET MC ONE ×3 (12:29→16:14)
[2016-05-10] MEDS ORDERED: BLOOD IV SET 1 EA INFUS.SET MC ONE (12:29)
[2016-05-10] MEDS ORDERED: IV NS 0.9% 250 ML IV ONE (12:29)
[2016-05-10] MEDS: ALBUMIN 25% 25 GM in PREMIX 1 EA IV PRN (12:41)
[2016-05-10] MEDS ORDERED: DOSE PER PHARMACY MICAFUNGIN 1 EA XX PRN (14:00)
[2016-05-10] MEDS: MICAFUNGIN SODIUM 100 MG in IV NS 0.9% 100 ML IV SCH (15:45)
[2016-05-10] MEDS ORDERED: FEE PK DOSING 1 MIN EA MC ONE (15:48)
[2016-05-10] MEDS ORDERED: TPN BAG #16 IV PRN ×20 (16:30→23:00)
[2016-05-10] MEDS ORDERED: VANCOMYCIN 1 GM in IV D5W 250 ML IV ONE (17:00)
[2016-05-10] MEDS: LACTULOSE 10 G/15 ML UDC (PYXIS) PO SCH (18:07)
[2016-05-10] MEDS: MEROPENEM 500 MG in IV NS 0.9% 50 ML IV SCH (20:04)
[2016-05-11] VITALS (105 sets, daily range): BP systolic 59–156; BP diastolic 18–74
[2016-05-11] MEDS: ERYTHROMYCIN 250 MG in IV NS 0.9% 100 ML IV SCH ×4 (00:06→18:20)
[2016-05-11] MEDS: LACTULOSE 10 G/15 ML UDC (PYXIS) PO SCH ×4 (00:06→18:20)
[2016-05-11] MEDS: METOCLOPRAMIDE HCL 10 MG/2 ML VIAL IV SCH ×4 (00:07→18:20)
[2016-05-11] MEDS: PHENYLEPHRINE 40 MG in IV NS 0.9% 250 ML IV PRN ×2 (00:08→20:45)
[2016-05-11] MEDS: BLOOD SUGAR DIAGNOSTIC 1 EACH STRIP IN SCH ×4 (00:12→18:31)
[2016-05-11] MEDS: INSULIN REGULAR, HUMAN 100 UNIT/ML 3 ML VIAL SQ PRN ×3 (00:14→18:31)
[2016-05-11 04:59] LABS: DIFF TOTAL % 100 %; EOSINOPHILS % (AUTO) 0.2 % (0.0-6.0); HEMATOCRIT 25 % (33-45); HEMOGLOBIN 8.4 g/dL (11.5-14.8); LYMPHOCYTES # (AUTO) 2.1 /CMM (0.8-4.8); LYMPHOCYTES % (AUTO) 10.1 % (20.0-44.0); MEAN CORPUSCULAR HEMOGLOBIN 33 PG (26.0-33.0); MEAN CORPUSCULAR HGB CONC 34 g/dl (31.0-36.0); MEAN CORPUSCULAR VOLUME 99 fL (82-100); MONOCYTES # (AUTO) 0.5 /CMM (0.1-1.30); MONOCYTES % (AUTO) 2.5 % (2.0-12.0); NEUTROPHILS # (AUTO) 17.8 /CMM (1.8-8.9); NEUTROPHILS % (AUTO) 87.2 % (43.0-81.0); RED BLOOD CELL COUNT(AUTO) 2.53 MIL/uL (4.0-5.2); WHITE BLOOD COUNT (AUTO) 20.5 K/uL (4.3-11.0)
[2016-05-11 05:05] LABS: PLATELET COUNT (AUTO) 27 /CMM (150-450)
[2016-05-11] MEDS ORDERED: IV SET PRIMARY PUMP SET 1 EA INFUS.SET MC ONE (05:17)
[2016-05-11 05:21] LABS: CALCIUM, SERUM 8.4 mg/dL (8.5-10.1); CREATININE 3.9 mg/dL (0.6-1.3); PHOSPHORUS 3.2 mg/dL (2.5-4.9); POTASSIUM 4.3 mmol/L (3.5-5.1)
[2016-05-11 05:24] LABS: ANISOCYTOSIS 2+; BAND % (MANUAL) 8 % (0.0-5.0); BASOPHILS % (MANUAL) 0 % (0.0-2.0); EOSINOPHILS % (MANUAL) 9 % (0-4); LYMPHOCYTES % (MANUAL) 12 % (16-48); PLATELET ESTIMATE DECREASED; POLYCHROMASIA 2+; SCHISTOCYTES 1+
[2016-05-11 05:30] LABS: ALBUMIN 2.3 g/dL (3.4-5.0); BILIRUBIN,DIRECT 21.1 mg/dL (0.0-0.2); BILIRUBIN,TOTAL 29.9 mg/dL (0.2-1.0); TOTAL PROTEIN, SERUM 5.6 g/dL (6.4-8.2)
[2016-05-11 05:32] LABS: INDIRECT BILIRUBIN 8.8 mg/dL (0.0-1.1)
[2016-05-11] MEDS: NOREPINEPHRINE 16 MG in IV D5W 500 ML IV PRN ×3 (05:35→20:04)
[2016-05-11] MEDS: LORAZEPAM INJ 2 MG/ML VIAL IV PRN (05:53)
[2016-05-11] MEDS ORDERED: TPN BAG #17 IV PRN ×16 (07:00→07:16)
[2016-05-11] MEDS ORDERED: TPN BAG #18 IV PRN ×10 (07:30)
[2016-05-11] MEDS ORDERED: VANCOMYCIN 500 MG in IV D5W 100 ML IV PRN (08:00)
[2016-05-11] MEDS: PANTOPRAZOLE 40 MG VIAL IV SCH (08:11)
[2016-05-11] MEDS: INSULIN DETEMIR 100 UNIT/ML CARTRIDGE SQ SCH (08:14)
[2016-05-11] MEDS: NEOMY SULF/BACITRAC ZN/POLY 15 GM TUBE TP SCH ×2 (08:16→16:15)
[2016-05-11] MEDS: LANOLIN/MIN OIL/PETROLAT,WHT 3.5 GM TUBE EACHEYE SCH ×2 (08:16→16:15)
[2016-05-11] MEDS ORDERED: PLATELET IV SET 1 EA INFUS.SET MC ONE (09:34)
[2016-05-11] MEDS ORDERED: DOSING PER PHARMACY-AMIKACI IV XX PRN (14:30)
[2016-05-11] MEDS ORDERED: FEE PK DOSING 1 MIN EA MC ONE (14:39)
[2016-05-11] MEDS ORDERED: IV NS 0.9% 250 ML IV ONE (15:15)
[2016-05-11] MEDS ORDERED: IV NS 0.9% 250 ML IV PRN (15:30)
[2016-05-11] MEDS: MICAFUNGIN SODIUM 100 MG in IV NS 0.9% 100 ML IV SCH (15:32)
[2016-05-11] MEDS ORDERED: AMIKACIN 750 MG in IV D5W 100 ML IV ONE (16:00)
[2016-05-12] VITALS (73 sets, daily range): BP systolic 45–150; BP diastolic 22–70
[2016-05-12] MEDS ORDERED: BLOOD IV SET 1 EA INFUS.SET MC ONE (00:03)
[2016-05-12] MEDS: ERYTHROMYCIN 250 MG in IV NS 0.9% 100 ML IV SCH ×4 (00:22→17:22)
[2016-05-12] MEDS: BLOOD SUGAR DIAGNOSTIC 1 EACH STRIP IN SCH ×4 (00:22→17:03)
[2016-05-12] MEDS: LACTULOSE 10 G/15 ML UDC (PYXIS) PO SCH ×4 (00:22→17:03)
[2016-05-12] MEDS: METOCLOPRAMIDE HCL 10 MG/2 ML VIAL IV SCH ×4 (00:22→17:03)
[2016-05-12] MEDS: INSULIN REGULAR, HUMAN 100 UNIT/ML 3 ML VIAL SQ PRN ×2 (00:25→05:39)
[2016-05-12] MEDS ORDERED: FILTER SET SAVER IV SET 1 EA INFUS.SET MC ONE ×2 (02:22→15:35)
[2016-05-12] MEDS ORDERED: IV SET PRIMARY PUMP SET 1 EA INFUS.SET MC ONE ×3 (02:23→16:48)
[2016-05-12] MEDS: NOREPINEPHRINE 16 MG in IV D5W 500 ML IV PRN ×3 (02:29→15:52)
[2016-05-12 05:15] LABS: HEMATOCRIT 24 % (33-45); MEAN CORPUSCULAR HEMOGLOBIN 33 PG (26.0-33.0); MEAN CORPUSCULAR HGB CONC 33 g/dl (31.0-36.0); MEAN CORPUSCULAR VOLUME 100 fL (82-100); RED BLOOD CELL COUNT(AUTO) 2.42 MIL/uL (4.0-5.2); WHITE BLOOD COUNT (AUTO) 28.3 K/uL (4.3-11.0)
[2016-05-12 05:19] LABS: CALCIUM, SERUM 8.6 mg/dL (8.5-10.1); CREATININE 4.1 mg/dL (0.6-1.3); PLATELET COUNT (AUTO) 40 /CMM (150-450); POTASSIUM 5.3 mmol/L (3.5-5.1)
[2016-05-12 06:16] LABS: BAND % (MANUAL) 11 % (0.0-5.0); BASOPHILS % (MANUAL) 0 % (0.0-2.0); CORRECTED WHITE BLOOD COUNT 26.7 K/uL (4.0-11.2); EOSINOPHILS % (MANUAL) 4 % (0-4); LYMPHOCYTES % (MANUAL) 14 % (16-48); PLATELET ESTIMATE DECREASED
[2016-05-12] MEDS: PANTOPRAZOLE 40 MG VIAL IV SCH (08:57)
[2016-05-12] MEDS: NEOMY SULF/BACITRAC ZN/POLY 15 GM TUBE TP SCH ×2 (08:58→16:04)
[2016-05-12] MEDS: LANOLIN/MIN OIL/PETROLAT,WHT 3.5 GM TUBE EACHEYE SCH ×2 (08:59→16:03)
[2016-05-12] MEDS ORDERED: AMIKACIN 500 MG in IV D5W 100 ML IV PRN (09:00)
[2016-05-12] MEDS: INSULIN DETEMIR 100 UNIT/ML CARTRIDGE SQ SCH (09:05)
[2016-05-12] MEDS ORDERED: SECONDARY IV SET 1 EA INFUS.SET MC ONE ×2 (11:47→15:58)
[2016-05-12] MEDS: ALBUMIN 25% 25 GM in PREMIX 1 EA IV PRN (11:54)
[2016-05-12] MEDS: PHENYLEPHRINE 40 MG in IV NS 0.9% 250 ML IV PRN ×2 (13:58→15:51)
[2016-05-12] MEDS ORDERED: IV NS 0.9% 500 ML IV ONE ×2 (14:00→14:30)
[2016-05-12 14:05] LABS: PHOSPHORUS 4.7 mg/dL (2.5-4.9)
[2016-05-12] MEDS ORDERED: VASOPRESSIN INJ 50 UNIT in IV D5W 497.5 ML IV PRN (14:30)
[2016-05-12] MEDS ORDERED: TPN BAG #19 IV PRN ×6 (15:00)
[2016-05-12] MEDS ORDERED: TPN BAG #20 IV PRN ×8 (15:00)
[2016-05-12] MEDS: MICAFUNGIN SODIUM 100 MG in IV NS 0.9% 100 ML IV SCH (15:54)
[2016-05-12] MEDS ORDERED: IV NS 0.9% 250 ML IV ONE (17:18)
[2016-05-12] MEDS ORDERED: PHENYLEPHRINE 80 MG in IV D5W 250 ML IV PRN (18:00)
[2016-05-12] MEDS ORDERED: MEROPENEM 500 MG in IV NS 0.9% 50 ML IV SCH (20:00)
== END 2016-05-12 22:02 | disposition expired | DRG 720 ==
LOC: ER 19:08 → TELE1 21:22 → ICU 04-25 06:21
PROVIDERS: ADMIT Family Medicine; ATTEND Family Medicine
PROC: 5A1955Z Respiratory Ventilation, Greater than 96 Consecutive Hours (ICD-10-PCS; principal; 2016-04-25)
PROC: 02HV33Z Insertion of Infusion Device into Superior Vena Cava, Percutaneous Approach (ICD-10-PCS; principal; 2016-04-25)
PROC: B548ZZA Ultrasonography of Superior Vena Cava, Guidance (ICD-10-PCS; principal; 2016-04-25)
PROC: B54CZZA Ultrasonography of Left Lower Extremity Veins, Guidance (ICD-10-PCS; 2016-04-28)
PROC: 06HN33Z Insertion of Infusion Device into Left Femoral Vein, Percutaneous Approach (ICD-10-PCS; 2016-04-28)
PROC: 5A1D60Z (ICD-10-PCS; 2016-04-28)
PROC: 03HC33Z Insertion of Infusion Device into Left Radial Artery, Percutaneous Approach (ICD-10-PCS; 2016-05-05)
PROC: 30233M1 Transfusion of Nonautologous Plasma Cryoprecipitate into Peripheral Vein, Percutaneous Approach (ICD-10-PCS; 2016-05-06)
PROC: 30233R1 Transfusion of Nonautologous Platelets into Peripheral Vein, Percutaneous Approach (ICD-10-PCS; 2016-05-07)
PROC: 30233N1 Transfusion of Nonautologous Red Blood Cells into Peripheral Vein, Percutaneous Approach (ICD-10-PCS; 2016-05-07)
PROC: 30233K1 Transfusion of Nonautologous Frozen Plasma into Peripheral Vein, Percutaneous Approach (ICD-10-PCS; 2016-05-08)
PROC: 02HV33Z Insertion of Infusion Device into Superior Vena Cava, Percutaneous Approach (ICD-10-PCS; 2016-05-12)
PROC: B548ZZA Ultrasonography of Superior Vena Cava, Guidance (ICD-10-PCS; 2016-05-12)
DX: A41.59 Other Gram-negative sepsis (principal); D65 Disseminated intravascular coagulation [defibrination syndrome]; J96.21 Acute and chronic respiratory failure with hypoxia; N17.0 Acute kidney failure with tubular necrosis; R65.21 Severe sepsis with septic shock; E43 Unspecified severe protein-calorie malnutrition; G92 Toxic encephalopathy; J96.10 Chronic respiratory failure, unspecified whether with hypoxia or hypercapnia; J15.6 Pneumonia due to other Gram-negative bacteria; Z51.5 Encounter for palliative care; Z99.11 Dependence on respirator [ventilator] status; I13.0 Hypertensive heart and chronic kidney disease with heart failure and stage 1 through stage 4 chronic kidney disease, or unspecified chronic kidney disease; J44.0 Chronic obstructive pulmonary disease with (acute) lower respiratory infection; E87.2 Acidosis; I50.9 Heart failure, unspecified; Z93.0 Tracheostomy status; N18.6 End stage renal disease; K76.6 Portal hypertension; N39.0 Urinary tract infection, site not specified; R65.20 Severe sepsis without septic shock; E11.22 Type 2 diabetes mellitus with diabetic chronic kidney disease; N18.9 Chronic kidney disease, unspecified; K74.60 Unspecified cirrhosis of liver; R16.1 Splenomegaly, not elsewhere classified; Z86.73 Personal history of transient ischemic attack (TIA), and cerebral infarction without residual deficits; F32.9 Major depressive disorder, single episode, unspecified; Z86.718 Personal history of other venous thrombosis and embolism; B96.4 Proteus (mirabilis) (morganii) as the cause of diseases classified elsewhere; E66.2 Morbid (severe) obesity with alveolar hypoventilation; E83.39 Other disorders of phosphorus metabolism; E87.1 Hypo-osmolality and hyponatremia; E87.5 Hyperkalemia; F45.8 Other somatoform disorders; K42.9 Umbilical hernia without obstruction or gangrene; K72.90 Hepatic failure, unspecified without coma; K92.2 Gastrointestinal hemorrhage, unspecified; Z66 Do not resuscitate; Z79.01 Long term (current) use of anticoagulants; Z79.4 Long term (current) use of insulin; Z99.2 Dependence on renal dialysis
CPT/HCPCS: 31720; 36415; 36569; 36600; 71010-TC; 74000-TC; 76770-TC; 80048-TC; 80053-TC; 80061-TC; 80074; 80076-TC; 80150; 80202-TC; 81000-TC; 82105; 82140-TC; 82247-TC; 82248-TC; 82272-TC; 82306; 82378; 82533; 82570-TC; 82728-TC; 82746; 82803-TC; 82962-TC; 83605-TC; 83615-TC; 83735-TC; 84100-TC; 84134-TC; 84300-TC; 84443-TC; 84484-TC; 84550-TC; 85025-TC; 85045-TC; 85385-TC; 85396; 85610-TC; 85652-TC; 85730-TC; 86300; 86304; 86850-TC; 86901; 86921-TC; 87040-TC; 87070-TC; 87081-TC; 87086-TC; 87186-TC; 87400; 90935-TC; 94002-TC; 94003-TC; 94760-TC; 99082-TC; A4216; A4606; A4623; A6253; A6402; A6403; A7526; A9563; C1750; C1751; C9113; J0278; J0692; J0696; J0744; J0885; J1364; J1815; J1956; J2060; J2185; J2248; J2270; J2370; J2405; J2597; J2765; J3370; J3475; J3480; J3490; J7030; J7040; J7050; J7060; P9012; P9016-BL; P9017-BL; P9034-BL; P9047; Z7610